=== PATIENT | male | born 1950 | race Caucasian/White ===

== ENCOUNTER 2016-09-11 10:46 | Emergency (ER) | payer OTHER ==
--- NOTE | 2016-09-11 12:32 | DIAGNOSTIC IMAGING REPORT ---
PROCEDURE: XR FINGER - RIGHT INDICATION: TRAUMA/INJURY TECHNIQUE: Three views of the right fifth digit COMPARISON: None. FINDINGS: No fractures or osseous lesions. IMPRESSION: 1. No fracture
--- NOTE | 2016-09-11 13:24 | ED CLINICAL REPORT ---
Clinical Report - Physicians/Mid Levels [facility] [address] [place] [address] 09/11/2016 10:50 [id number] Time Seen: 11:09. Arrived- By private vehicle. Historian- patient and family. HISTORY OF PRESENT ILLNESS Chief Complaint: Injury to the right 5th (little) finger. The injury happened about 1 week ago. The patient sustained a crush injury. Occurred at home. Patient is experiencing mild pain. Patient denies injury to the head or neck. No other injury. REVIEW OF SYSTEMS The patient has had swelling. No tingling, numbness, weakness, foreign body or skin laceration. PAST HISTORY Primary physician (Dr Healy and Dr Thomas) PROBLEMS: Benign Prostatic Hypertrophy. Erectile Dysfunction. Diabetes Mellitus. Peripheral Neuropathy. Atrial Fibrillation. Arrhythmia. Sinusitis. Congestive Heart Failure. Hypertension. Hyperlipidemia. Anxiety Reaction. Cellulitis. Sleep Apnea. Pulmonary Hypertension. COPD - Chronic Obstructive Pulmonary Disease. Herpes Zoster. Hypercholesterolemia. SURGERIES: Cholecystectomy. Lung Transplant. Tor Fundoplasty. SOCIAL HISTORY No alcohol use or drug use. ADDITIONAL NOTES The nursing notes have been reviewed. PHYSICAL EXAM Vital Signs: 09/11/2016 10:56 BP: 159/65. HR: 70. RR: 14. O2 saturation: 96%. Temp: 97.8 F. Appearance: Alert. Oriented X3. Patient in mild distress. Head: Head atraumatic. Eyes: No scleral icterus or pale conjunctivae. CVS: Heart sounds normal. Pulses normal. Respiratory: No respiratory distress. Breath sounds normal. Abdomen: Soft and nontender. Back: No tenderness. Normal inspection. Skin: Skin warm and dry. Skin intact. Extremities: Tip of left little finger: moderate tenderness and mild swelling medium sized subungual hematoma present. No erythema, laceration of tip of left little finger or foreign body. No nail avulsion, exposed bone or loss of the nail bed on the left little finger or tip amputation of the left little finger. No wrist injury. Hand and wrist exam otherwise negative. Extremities otherwise negative. Neuro, Vascular and Tendons: Capillary refill not prolonged. Sensation intact. Motor intact. Tendon function intact. Neuro: Oriented X 3. LABS, X-RAYS, AND EKG Rt UE Digits X-ray: No fracture. Views: AP, lateral and oblique. Technique: good. The X-rays were interpreted contemporaneously by me. PROGRESS AND PROCEDURES Digital Nerve Block - Finger: Digital nerve block performed on the right little finger. Web space approach utilized. Landmarks identified. Skin prepped. Total volume of 4 mL 0.5% Marcaine infiltrated via two punctures using a 27-gauge needle. Patient cooperative during procedure. No complications encountered. Excellent anesthesia achieved. Nail Injury Note: Location- Right little finger. Anesthesia provided by digital block and using 0.5% Marcaine. Prep done with Betadine. Nailbed trephination performed with electrocautery. Wound dressing applied. Tetanus immunization up-to-date. Course of Care: Pt offered and accepted nail trephonation after digital block. Risks and benefits of the procedure were discussed including infection - especially in the setting of immunosuppresive agents. Patient/family counseled. Additional history sought (from spouse late in patient visit). Old ED records reviewed. (PDMP: oxycodone 15mg (#150) given on 09/02/16). Disposition: Discharged. Condition: stable and improved. CLINICAL IMPRESSION Subungual hematoma of the right fifth toe. No damage to the nail or foreign body present. Essential hypertension. INSTRUCTIONS Apply ice. Elevate affected areas above chest level. Warnings: INFECTION: Watch for signs of infection (increasing heat and redness, pus-like drainage, swelling, or increased pain). Return or see your doctor if these signs occur. GENERAL WARNINGS: Return or contact your physician immediately if your condition worsens or changes unexpectedly, if not improving as expected, or if other problems arise. Your Current Medications: CONTINUE TAKING THE FOLLOWING MEDICATIONS: Bactrim Oral : 400/80mg 1 tab at bedtime. Cholecalciferol Oral : Tablet 1000 unit, 1 tablet daily. Clobetasol PRN*. Colace Oral : Capsule 100 mg, 2 capsules daily. Crestor Oral : Tablet 10 mg, daily. Digoxin Oral : Tablet 125 mcg, 1 tablet daily. Gabapentin Oral : 600mg 3x a day. Loratadine Oral : 10 mg daily. Magnesium Hydroxide Oral : 400mg x1 tab daily. metoprolol 100mg 1/2 tab x2 daily*. Mom 30ml prn*. Multi Vitamin/Minerals Oral. Ondansetron HCl Oral : Tablet 8 mg, prn. OxyCODONE HCl Oral : 15mg PRN shingles. PredniSONE Oral : 5 mg daily. Sildenefil 20mg 5 tab in am*. Simethicone Oral : 80mg 1-2 in am and pm. Tacrolimus Oral : Capsule 1 mg, 4 caps 7am and 4 caps 7pm. Testosterone CYP 200mg/ml 1&1/2 ml Q three weeks*. Tums Oral : daily. Tylenol Oral : 325 mg PRN. Victoza 1.7mg daily*. Warfarin Sodium Oral : 2 mg x2 at bedtime. Xanax Oral : 0.25 mg, prn. Follow-up: Follow up with your doctor Niraj in about two days. Follow up with an orthopedic surgeon You may call for a follow up appointment. Screening today revealed the patient's blood pressure to be in the hypertensive range. The patient should follow up with a primary care provider for blood pressure management. (Electronically signed by Cecil Clarke DO 09/11/2016 16:26)
--- NOTE | 2016-09-11 13:24 | ED ORDER SUMMARY ---
..... Patient: DANIELLE RESENDIZ OrderSheet [facility] VisitID: [id number] [address] [place] [address] 66y, M Registration Date/Time: 09/11/2016 ORDER SHEET Weight: 108.8 kg (stated) Allergies: Statins GENERAL ORDERS: Finger Right (small) Urgent (11:18 09/11/2016 Dorys MCKINNEY) ([facility] 11:22 Matt) (11:33 Thang Ga) MEDICATION ORDERS: IV FLUIDS: ORDER SHEET NOTES: [Electronically signed by Cecil Clarke DO (16:26 09/11/2016)] [Electronically signed by Marilyn Vanegas R.N. (16:28 09/11/2016)] [Electronically locked/signed by Marilyn Vanegas R.N. (16:28 09/11/2016)]
--- NOTE | 2016-09-11 13:24 | ED ORDER SUMMARY ---
..... Patient: DANIELLE RESENDIZ OrderSheet [facility] VisitID: [id number] [address] [place] [address] 66y, M Registration Date/Time: 09/11/2016 ORDER SHEET Weight: 108.8 kg (stated) Allergies: Statins GENERAL ORDERS: Finger Right (small) Urgent (11:18 09/11/2016 Dorys MCKINNEY) ([facility] 11:22 Matt) (11:33 Thang Ga) MEDICATION ORDERS: IV FLUIDS: ORDER SHEET NOTES: [Electronically signed by Cecil Clarke DO (16:26 09/11/2016)] [Electronically signed by Marilyn Vanegas R.N. (16:28 09/11/2016)] [Electronically locked/signed by Marilyn Vanegas R.N. (16:28 09/11/2016)]
--- NOTE | 2016-09-11 13:24 | ED NURSING NOTES ---
Clinical Report - Nurses [facility] [address] [place] [address] 09/11/2016 10:50 Patient: DANIELLE RESENDIZ TRIAGE Triage time 10:56. Acuity: LEVEL 4. Chief Complaint: CRUSH INJURY. Alert. No acute distress. SEPSIS SCREEN: Sepsis Screen. Negative (no infection suspected/documented). GIACOMO COMA SCORE: [place] Coma Scale: 15- eyes open spontaneously (4); best verbal response- oriented x 4 (5); best motor response- obeys commands (6). --11:07 Marilyn Vanegas R.N. 10:56 09/11/16. BP: 159/65. HR: 70. RR: 14. O2 saturation: 96%. Temp: 97.8 F. Pain level now 08/31. --11:07 Marilyn Vanegas R.N. Weight: 108.8 kg stated. Height/Length: 66 inches Per Patient. BMI: 38.7. --10:57 Marilyn Vanegas R.N. Medications Tylenol Oral 325 mg, PRN. --11:11 Marilyn Vanegas R.N. Xanax Oral 0.25 mg, as needed. --11:12 Marilyn Vanegas R.N. Tums Oral daily. --11:12 Marilyn Vanegas R.N. Cholecalciferol Oral (Tablet 1000 unit) 1 tablet, daily. --11:12 Marilyn Vnaegas R.N. Clobetasol PRN. --11:12 Marilyn Vanegas R.N. Crestor Oral (Tablet 10 mg), daily. --11:13 Marilyn Vanegas R.N. Digoxin Oral (Tablet 125 mcg) 1 tablet, daily. --11:13 Marilyn Vanegas R.N. Colace Oral (Capsule 100 mg) 2 capsules, daily. --11:13 Marilyn Vanegas R.N. Gabapentin Oral 600mg , 3x a day. --11:14 Marilyn Vanegas R.N. Loratadine Oral 10 mg, daily. --11:14 Marilyn Vanegas R.N. Mom 30ml prn. --11:15 Marilyn Vanegas R.N. Magnesium Hydroxide Oral 400mg x1 tab daily. --11:15 Marilyn Vanegas R.N. metoprolol 100mg 1/2 tab x2 daily. --11:16 Marilyn Vanegas R.N. Multi Vitamin/Minerals Oral. --11:16 Marilyn Vanegas R.N. Ondansetron HCl Oral (Tablet 8 mg), as needed. --11:16 Marilyn Vanegas R.N. OxyCODONE HCl Oral 15mg PRN shingles. --11:17 Marilyn Vanegas R.N. PredniSONE Oral 5 mg, daily. --11:17 Marilyn Vanegas R.N. Sildenefil 20mg 5 tab in am. --11:18 Marilyn Vanegas R.N. Simethicone Oral 80mg 1-2 in am and pm. --11:18 Marilyn Vanegas R.N. Tacrolimus Oral (Capsule 1 mg) 4 caps 7am and 4 caps 7pm. --11:19 Marilyn Vanegas R.N. Testosterone CYP 200mg/ml 1&1/2 ml Q three weeks. --11:20 Marilyn Vanegas R.N. Bactrim Oral 400/80mg 1 tab at bedtime. --11:20 Marilyn Vanegas R.N. Victoza 1.7mg daily. --11:20 Marilyn Vanegas R.N. Warfarin Sodium Oral 2 mg, x2 at bedtime. --11:21 Marilyn Vanegas R.N. Allergies Statins. (feet swelling) --11:01 Marilyn Vanegas R.N. History Arrived by private vehicle. Historian: patient. Unaccompanied. Primary physician (Dr Healy and Dr Thomas). Location of injuries: right thumb and tip of right thumb. This occurred (1 week ago). 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 PAST MEDICAL HX: Tetanus status: up-to-date. Immunizations: up-to-date. SOCIAL HX: Smoker- current status unknown. No alcohol use or drug use. No infectious disease exposure. ABUSE ASSESSMENT: Abuse assessment: The patient was asked "Do you feel safe in your home?" and "Has anyone hurt you or threatened to hurt you?". No report of abuse. NUTRITIONAL RISK ASSESSMENT: The nutritional risk assessment revealed no deficiencies. FUNCTIONAL ASSESSMENT: Functional assessment: no impairments noted. LEARNING NEEDS ASSESSMENT: The learning needs assessment revealed no barriers. --11:07 Marilyn Vanegas R.N. ( correction to prior charting. Location of injury: tip of right little finger). --11:09 Marilyn Vanegas R.N. SOCIAL HX: Former smoker, end date 2002. --11:30 Marilyn Vanegas R.N. PROBLEMS: Benign Prostatic Hypertrophy. Erectile Dysfunction. Diabetes Mellitus. Peripheral Neuropathy. Atrial Fibrillation. Arrhythmia. Sinusitis. Congestive Heart Failure. Hypertension. Hyperlipidemia. Anxiety Reaction. Cellulitis. Sleep Apnea. Pulmonary Hypertension. COPD - Chronic Obstructive Pulmonary Disease. Herpes Zoster. Hypercholesterolemia. --11:06 Marilyn Vanegas R.N. ADDITIONAL SURGERIES: Cholecystectomy. Lung Transplant. --11:06 Marilyn Vanegas R.N. Tor Fundoplasty. --11:06 Marilyn Vanegas R.N. Interventions ID band on patient. Ambulatory. --11:07 Marilyn Vanegas R.N. PHYSICAL ASSESSMENT Ambulatory to room. GENERAL / NEURO / PSYCH: Alert. Appears in no acute distress. RESPIRATORY: Respirations not labored. CVS: Capillary refill less than 2 seconds. EXTREMITIES: Tip of right little finger: small subungual hematoma present. SKIN: Skin intact. Skin is warm and dry. --11:07 Marilyn Vanegas R.N. NURSING PROGRESS NOTES Two patient identifiers checked. Call light placed in reach. Side rails up x 2. Bed placed in lowest position. Brakes of bed on. Patient ready for evaluation- chart flagged. --11:07 Marilyn Vanegas R.N. ( portable xray done at the bedside.). --11:31 Marilyn Vanegas R.N. Patient informed about reason for wait. --12:28 Marilyn Vanegas R.N. 12:27 09/11/16. BP: 137/75. HR: 67. RR: 15. O2 saturation: 95%. --12:28 Marilyn Vanegas R.N. DISPOSITION / DISCHARGE 13:30. Departure time: 1330. Condition at departure: stable. No learning barriers present. Discharge instructions provided and reviewed with the patient. Reviewed referral to family practice for followup. Patient verbalized understanding. Written instructions provided in Chilean. The patient was discharged home and accompanied by office associate. He left the Emergency Department ambulatory and via private vehicle. Slip Injector And Applicator driving. Medication list reviewed and validated. --16:27 Marilyn Vanegas R.N. 13:30 09/11/16. RR: 15. --16:27 Marilyn Vanegas R.N. Locked/Released at 09/11/2016 16:28 by Marilyn Vanegas R.N.
--- NOTE | 2016-09-11 13:24 | ED NURSING NOTES ---
Clinical Report - Nurses [facility] [address] [place] [address] 09/11/2016 10:50 Patient: DANIELLE RESENDIZ TRIAGE Triage time 10:56. Acuity: LEVEL 4. Chief Complaint: CRUSH INJURY. Alert. No acute distress. SEPSIS SCREEN: Sepsis Screen. Negative (no infection suspected/documented). GIACOMO COMA SCORE: [place] Coma Scale: 15- eyes open spontaneously (4); best verbal response- oriented x 4 (5); best motor response- obeys commands (6). --11:07 Marilyn Vanegas R.N. 10:56 09/11/16. BP: 159/65. HR: 70. RR: 14. O2 saturation: 96%. Temp: 97.8 F. Pain level now 08/31. --11:07 Marilyn Vanegas R.N. Weight: 108.8 kg stated. Height/Length: 66 inches Per Patient. BMI: 38.7. --10:57 Marilyn Vanegas R.N. Medications Tylenol Oral 325 mg, PRN. --11:11 Marilyn Vanegas R.N. Xanax Oral 0.25 mg, as needed. --11:12 Marilyn Vanegas R.N. Tums Oral daily. --11:12 Marilyn Vanegas R.N. Cholecalciferol Oral (Tablet 1000 unit) 1 tablet, daily. --11:12 Marilyn Vanegas R.N. Clobetasol PRN. --11:12 Marilyn Vanegas R.N. Crestor Oral (Tablet 10 mg), daily. --11:13 Marilyn Vanegas R.N. Digoxin Oral (Tablet 125 mcg) 1 tablet, daily. --11:13 Marilyn Vanegas R.N. Colace Oral (Capsule 100 mg) 2 capsules, daily. --11:13 Marilyn Vanegas R.N. Gabapentin Oral 600mg , 3x a day. --11:14 Marilyn Vanegas R.N. Loratadine Oral 10 mg, daily. --11:14 Marilyn Vanegas R.N. Mom 30ml prn. --11:15 Marilyn Vanegas R.N. Magnesium Hydroxide Oral 400mg x1 tab daily. --11:15 Marilyn Vanegas R.N. metoprolol 100mg 1/2 tab x2 daily. --11:16 Marilyn Vanegas R.N. Multi Vitamin/Minerals Oral. --11:16 Marilyn Vanegas R.N. Ondansetron HCl Oral (Tablet 8 mg), as needed. --11:16 Marilyn Vanegas R.N. OxyCODONE HCl Oral 15mg PRN shingles. --11:17 Marilyn Vanegas R.N. PredniSONE Oral 5 mg, daily. --11:17 Marilyn Vanegas R.N. Sildenefil 20mg 5 tab in am. --11:18 Marilyn Vanegas R.N. Simethicone Oral 80mg 1-2 in am and pm. --11:18 Marilyn Vanegas R.N. Tacrolimus Oral (Capsule 1 mg) 4 caps 7am and 4 caps 7pm. --11:19 Marilyn Vanegas R.N. Testosterone CYP 200mg/ml 1&1/2 ml Q three weeks. --11:20 Marilyn Vanegas R.N. Bactrim Oral 400/80mg 1 tab at bedtime. --11:20 Marilyn Vanegas R.N. Victoza 1.7mg daily. --11:20 Marilyn Vanegas R.N. Warfarin Sodium Oral 2 mg, x2 at bedtime. --11:21 Marilyn Vanegas R.N. Allergies Statins. (feet swelling) --11:01 Marilyn Vanegas R.N. History Arrived by private vehicle. Historian: patient. Unaccompanied. Primary physician (Dr Healy and Dr Thomas). Location of injuries: right thumb and tip of right thumb. This occurred (1 week ago). 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 PAST MEDICAL HX: Tetanus status: up-to-date. Immunizations: up-to-date. SOCIAL HX: Smoker- current status unknown. No alcohol use or drug use. No infectious disease exposure. ABUSE ASSESSMENT: Abuse assessment: The patient was asked "Do you feel safe in your home?" and "Has anyone hurt you or threatened to hurt you?". No report of abuse. NUTRITIONAL RISK ASSESSMENT: The nutritional risk assessment revealed no deficiencies. FUNCTIONAL ASSESSMENT: Functional assessment: no impairments noted. LEARNING NEEDS ASSESSMENT: The learning needs assessment revealed no barriers. --11:07 Marilyn Vanegas R.N. ( correction to prior charting. Location of injury: tip of right little finger). --11:09 Marilyn Vangeas R.N. SOCIAL HX: Former smoker, end date 2002. --11:30 Marilyn Vanegas R.N. PROBLEMS: Benign Prostatic Hypertrophy. Erectile Dysfunction. Diabetes Mellitus. Peripheral Neuropathy. Atrial Fibrillation. Arrhythmia. Sinusitis. Congestive Heart Failure. Hypertension. Hyperlipidemia. Anxiety Reaction. Cellulitis. Sleep Apnea. Pulmonary Hypertension. COPD - Chronic Obstructive Pulmonary Disease. Herpes Zoster. Hypercholesterolemia. --11:06 Marilyn Vanegas R.N. ADDITIONAL SURGERIES: Cholecystectomy. Lung Transplant. --11:06 Marilyn Vanegas R.N. Tor Fundoplasty. --11:06 Marilyn Vanegas R.N. Interventions ID band on patient. Ambulatory. --11:07 Marilyn Vanegas R.N. PHYSICAL ASSESSMENT Ambulatory to room. GENERAL / NEURO / PSYCH: Alert. Appears in no acute distress. RESPIRATORY: Respirations not labored. CVS: Capillary refill less than 2 seconds. EXTREMITIES: Tip of right little finger: small subungual hematoma present. SKIN: Skin intact. Skin is warm and dry. --11:07 Marilyn Vanegas R.N. NURSING PROGRESS NOTES Two patient identifiers checked. Call light placed in reach. Side rails up x 2. Bed placed in lowest position. Brakes of bed on. Patient ready for evaluation- chart flagged. --11:07 Marilyn Vanegas R.N. ( portable xray done at the bedside.). --11:31 Marilyn Vanegas R.N. Patient informed about reason for wait. --12:28 Marilyn Vanegas R.N. 12:27 09/11/16. BP: 137/75. HR: 67. RR: 15. O2 saturation: 95%. --12:28 Marilyn Vanegas R.N. DISPOSITION / DISCHARGE 13:30. Departure time: 1330. Condition at departure: stable. No learning barriers present. Discharge instructions provided and reviewed with the patient. Reviewed referral to family practice for followup. Patient verbalized understanding. Written instructions provided in Cuban. The patient was discharged home and accompanied by photograph inspector. He left the Emergency Department ambulatory and via private vehicle. Access Consultant driving. Medication list reviewed and validated. --16:27 Marilyn Vanegas R.N. 13:30 09/11/16. RR: 15. --16:27 Marilyn Vanegas R.N. Locked/Released at 09/11/2016 16:28 by Marilyn Vanegas R.N.
--- NOTE | 2016-09-11 16:28 | ED MAR SUMMARY ---
..... Medication Administration Record [facility] [address] [place], [place] [id number] Patient: DANIELLE RESENDIZ Visit ID: [id number] 66y, M Weight: 108.8 kg Height/Length: 66 in BMI: 38.7 ALLERGIES: Statins
--- NOTE | 2016-09-11 16:28 | ED MED RECONCILIATION SUMMARY ---
Patient: DANIELLE RESENDIZ Medication Reconciliation Report [facility] VisitID: [id number] [place] [address] 66y, M Registration Date/Time: 09/11/2016 Weight: 108.8 kg Height/Length: 66 in. BMI: 38.7 ALLERGIES: Statins The patient's Home Medications are listed below: CONTINUE TAKING THE FOLLOWING MEDICATIONS: Bactrim Oral 400/80mg 1 tab at bedtime Cholecalciferol Oral (1000 unit) 1 tablet, daily Clobetasol PRN Colace Oral (100 mg) 2 capsules, daily Crestor Oral (10 mg), daily Digoxin Oral (125 mcg) 1 tablet, daily Gabapentin Oral 600mg , 3x a day Loratadine Oral 10 mg, daily Magnesium Hydroxide Oral 400mg x1 tab daily metoprolol 100mg 1/2 tab x2 daily Mom 30ml prn Multi Vitamin/Minerals Oral Ondansetron HCl Oral (8 mg) OxyCODONE HCl Oral 15mg PRN shingles PredniSONE Oral 5 mg, daily Sildenefil 20mg 5 tab in am Simethicone Oral 80mg 1-2 in am and pm Tacrolimus Oral (1 mg) 4 caps 7am and 4 caps 7pm Testosterone CYP 200mg/ml 1&1/2 ml Q three weeks Tums Oral daily Tylenol Oral 325 mg, PRN Victoza 1.7mg daily Warfarin Sodium Oral 2 mg, x2 at bedtime Xanax Oral 0.25 mg The source(s) of the original Home Medication information: Not obtained. The following Medications were given to the patient in the Emergency Department: None. The following Medications were prescribed to the patient: None.
--- NOTE | 2016-09-11 16:28 | ED MED RECONCILIATION SUMMARY ---
Patient: DANIELLE RESENDIZ Medication Reconciliation Report [facility] VisitID: [id number] [place] [address] 66y, M Registration Date/Time: 09/11/2016 Weight: 108.8 kg Height/Length: 66 in. BMI: 38.7 ALLERGIES: Statins The patient's Home Medications are listed below: CONTINUE TAKING THE FOLLOWING MEDICATIONS: Bactrim Oral 400/80mg 1 tab at bedtime Cholecalciferol Oral (1000 unit) 1 tablet, daily Clobetasol PRN Colace Oral (100 mg) 2 capsules, daily Crestor Oral (10 mg), daily Digoxin Oral (125 mcg) 1 tablet, daily Gabapentin Oral 600mg , 3x a day Loratadine Oral 10 mg, daily Magnesium Hydroxide Oral 400mg x1 tab daily metoprolol 100mg 1/2 tab x2 daily Mom 30ml prn Multi Vitamin/Minerals Oral Ondansetron HCl Oral (8 mg) OxyCODONE HCl Oral 15mg PRN shingles PredniSONE Oral 5 mg, daily Sildenefil 20mg 5 tab in am Simethicone Oral 80mg 1-2 in am and pm Tacrolimus Oral (1 mg) 4 caps 7am and 4 caps 7pm Testosterone CYP 200mg/ml 1&1/2 ml Q three weeks Tums Oral daily Tylenol Oral 325 mg, PRN Victoza 1.7mg daily Warfarin Sodium Oral 2 mg, x2 at bedtime Xanax Oral 0.25 mg The source(s) of the original Home Medication information: Not obtained. The following Medications were given to the patient in the Emergency Department: None. The following Medications were prescribed to the patient: None.
--- NOTE | 2016-09-11 16:28 | ED MAR SUMMARY ---
..... Medication Administration Record [facility] [address] [place], [place] [id number] Patient: DANIELLE RESENDIZ Visit ID: [id number] 66y, M Weight: 108.8 kg Height/Length: 66 in BMI: 38.7 ALLERGIES: Statins
--- NOTE | 2016-09-11 16:28 | ED DISCHARGE INSTRUCTIONS ---
Patient: DANIELLE RESENDIZ General Instructions [facility] VisitID: [id number] [place] [address] 66y, M Registration Date/Time: 09/11/2016 Subungual hematoma of the right fifth toe. No damage to the nail or foreign body present. Essential hypertension. INSTRUCTIONS Apply ice. Elevate affected areas above chest level. Warnings: INFECTION: Watch for signs of infection (increasing heat and redness, pus-like drainage, swelling, or increased pain). Return or see your doctor if these signs occur. GENERAL WARNINGS: Return or contact your physician immediately if your condition worsens or changes unexpectedly, if not improving as expected, or if other problems arise. Your Current Medications: CONTINUE TAKING THE FOLLOWING MEDICATIONS: Bactrim Oral : 400/80mg 1 tab at bedtime. Cholecalciferol Oral : Tablet 1000 unit, 1 tablet daily. Clobetasol PRN*. Colace Oral : Capsule 100 mg, 2 capsules daily. Crestor Oral : Tablet 10 mg, daily. Digoxin Oral : Tablet 125 mcg, 1 tablet daily. Gabapentin Oral : 600mg 3x a day. Loratadine Oral : 10 mg daily. Magnesium Hydroxide Oral : 400mg x1 tab daily. metoprolol 100mg 1/2 tab x2 daily*. Mom 30ml prn*. Multi Vitamin/Minerals Oral. Ondansetron HCl Oral : Tablet 8 mg, prn. OxyCODONE HCl Oral : 15mg PRN shingles. PredniSONE Oral : 5 mg daily. Sildenefil 20mg 5 tab in am*. Simethicone Oral : 80mg 1-2 in am and pm. Tacrolimus Oral : Capsule 1 mg, 4 caps 7am and 4 caps 7pm. Testosterone CYP 200mg/ml 1&1/2 ml Q three weeks*. Tums Oral : daily. Tylenol Oral : 325 mg PRN. Victoza 1.7mg daily*. Warfarin Sodium Oral : 2 mg x2 at bedtime. Xanax Oral : 0.25 mg, prn. Follow-up: Follow up with your doctor Niraj in about two days. Follow up with an orthopedic surgeon You may call for a follow up appointment. Screening today revealed the patient's blood pressure to be in the hypertensive range. The patient should follow up with a primary care provider for blood pressure management. ADDITIONAL INFORMATION Subungual Hematoma A subungual hematoma is blood under the nail. It occurs when the finger or toe has been hit or crushed. It causes the nail to look blue. Sometimes, the bone under the nail is also fractured and this will take longer to heal. If the bruise is small and not too painful, it will heal without treatment. If the bruise is large and painful, the blood may need to be drained. If a large area of the nail is damaged, it may be removed by your doctor. If the nail was not removed, it may separate and fall off in the next two weeks. In almost all cases, the nail will grow back from under the cuticle. This takes a few weeks to start and is complete in about 4-6 months for a fingernail and 12 months for a toenail. If the nail bed was damaged, the nail may grow back with a rough or irregular shape. Sometimes the nail may not regrow at all. Home Care: Apply an ice pack (ice cubes in a plastic bag, wrapped in a thin towel) and apply for 20 minutes every 1-2 hours the first day. Continue this 3-4 times a day until the pain and swelling goes away. If the nail was drained: Keep the nail covered with a clean Band-Aid for the next two days. There may be some oozing of blood during that time, so change the Band-Aid as needed. Soak the finger or toe once a day under warm running water. Clean any crust away with a cotton tipped applicator (Q-tip) soaked in soapy water. If the nail was removed: The nail bed (tissue under the nail) is moist, soft and sensitive. This needs to be protected from injury for the first 7-10 days until it dries out and becomes hard. Keep it covered with a dressing or Band-Aid until that time. Bandages tend to stick to a newly exposed nail bed and be hard to remove if left in place more than 24 hours. Therefore, unless you were told otherwise, change dressings every 24 hours. If necessary, soak the dressing off while holding your finger or toe under warm running water. If an x-ray showed a fracture, you should protect the finger or toe for 3-4 weeks while it is healing. If you were prescribed antibiotics to prevent infection, take them as directed until they are all gone. You may use acetaminophen (Tylenol) or ibuprofen (Motrin, Advil) to control pain, unless another medicine was prescribed. [NOTE: If you have chronic liver or kidney disease or ever had a stomach ulcer or GI bleeding, talk with your doctor before using these medicines.] Do not use ibuprofen in children under six months of age. Follow Up With Your Doctor Or This Facility As Advised. If The Nail Was Drained, There Is A Small Risk Of Infection. Watch Carefully For The Signs Listed Below. Get Prompt Medical Attention If Any Of The Following Occur: Increasing redness around the nail Increasing local pain or swelling Pus draining from the nail Fever of 100.4F (38C) or higher, or as directed by your healthcare provider High Blood Pressure --Established High Blood Pressure (Hypertension) is a chronic disease. The cause is unknown in most cases. It can usually be controlled with lifestyle changes and/or medicines. Symptoms of high blood pressure may include headache, dizziness, visual changes, chest pain and shortness of breath. Sometimes it causes no symptoms at all. However, even if there are no symptoms, untreated high blood pressure increases the risk of heart attack, also known as acute myocardial infarction, or AMI, and stroke. It is a serious health risk and should not be ignored. A normal blood pressure is 120/80 or less. The first (top) number is the "systolic" pressure. The second (bottom) number is the "diastolic" pressure. Hypertension exists when either the top number is 140 or higher, OR the bottom number is 90 or higher on repeated measurements. Home Care: All patients with high blood pressure should do the following to lower their pressure. If you are on medicines, then these methods may reduce or eliminate your need for medicines in the future. Begin a weight loss program if you are overweight. Reduce your salt intake. Avoid high salt foods (olives, pickles, smoked meats, salted potato chips, etc.). Do not add salt to your food at the table. Use only small amounts of salt when cooking. Begin an exercise program. Discuss with your doctor what type of exercise program would be best for you. It doesn't have to be difficult. Even brisk walking for 20 minutes three times a week is a good form of exercise. Avoid medicines which contain heart stimulants. This includes many cold and sinus decongestant pills and sprays as well as diet pills. Check the warnings about hypertension on the label. Stimulants such as amphetamine or cocaine could be lethal for someone with hypertension. Never take these. Limit your caffeine intake or switch to caffeine-free products. Stop smoking. If you are a long-time smoker, this can be hard. Enroll in a stop-smoking program to improve your chance of success. Learning how to handle stress better is an important part of any program to lower blood pressure. Learn about relaxation methods such as meditation, yoga or biofeedback. If medicines were prescribed, take them exactly as directed. Missing doses may cause your blood pressure get out of control. Consider buying an automatic blood pressure machine (available at most pharmacies). Use this to monitor your blood pressure at home and report the results to your doctor. Follow Up: Regular visits to your own physician for blood pressure checks and medicine adjustment is an important part of your care. Make a follow-up appointment as directed by our staff. Get Prompt Medical Attention if any of the following occur: Chest pain or shortness of breath Severe headache Throbbing or rushing sound in the ears Nosebleed Sudden severe abdominal pain Extreme drowsiness, confusion or fainting Dizziness or vertigo (dizziness with spinning sensation) Weakness of an arm or leg or one side of the face Difficulty with speech or vision You have been given the following additional information: Subungual Hematoma Hypertension, Established (Electronically signed by Cecil Clarke DO 09/11/2016 16:26)
== END 2016-09-11 13:30 | disposition home or self-care (01) ==
LOC: ED SRH 10:46
DX: S60.051A Contusion of right little finger without damage to nail, initial encounter (principal); W23.0XXA Caught, crushed, jammed, or pinched between moving objects, initial encounter; Y92.009 Unspecified place in unspecified non-institutional (private) residence as the place of occurrence of the external cause; I11.0 Hypertensive heart disease with heart failure; Z79.01 Long term (current) use of anticoagulants; E11.40 Type 2 diabetes mellitus with diabetic neuropathy, unspecified; I50.9 Heart failure, unspecified; E78.5 Hyperlipidemia, unspecified

== ENCOUNTER 2016-09-30 18:23 | Emergency (ER) | payer OTHER ==
--- NOTE | 2016-09-30 19:35 | ED NURSING NOTES ---
Clinical Report - Nurses [facility] [address] [place] [address] 09/30/2016 18:24 Patient: DANIELLE RESENDIZ TRIAGE Triage time 18:35 Sep 30 2016. Acuity: LEVEL 3. Chief Complaint: (laceration). Alert. No acute distress. GIACOMO COMA SCORE: [place] Coma Scale: 15- eyes open spontaneously (4); best verbal response- oriented x 4 (5); best motor response- obeys commands (6). --18:41 Kelly Irving R.N. 18:35 09/30/16. BP: 158/52. HR: 60. RR: 20. O2 saturation: 95%. Temp: 98.1 F. Pain level now: 08/03. --18:41 Kelly Irving R.N. Weight: 108.8 kg stated. Height/Length: 67 inches Per Patient. BMI: 37.6. --18:40 Kelly Irving R.N. Medication/allergy information source: the patient's imported external medical record. --18:41 Kelly Irving R.N. History Arrived by private vehicle. Historian: patient. Accompanied by family. Onset. (about 1 hours). No cough or difficulty breathing. 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 PAST MEDICAL HX: Immunizations: up-to-date. SOCIAL HX: Former smoker, end date 2002. Occasional alcohol use. No drug use. No infectious disease exposure. SELF HARM ASSESSMENT: A self harm assessment was performed. The patient answered "no" to the question "Do you have thoughts of harming or killing yourself?". FALL RISK ASSESSMENT: Fall risk assessment completed. No fall risk identified. NUTRITIONAL RISK ASSESSMENT: The nutritional risk assessment revealed no deficiencies. FUNCTIONAL ASSESSMENT: Functional assessment: no impairments noted. LEARNING NEEDS ASSESSMENT: The learning needs assessment revealed no barriers. ABUSE ASSESSMENT: Abuse assessment: The patient was asked "Do you feel safe in your home?" and "Has anyone hurt you or threatened to hurt you?". SKIN INTEGRITY ASSESSMENT: Skin integrity risk assessment completed. No skin integrity risk identified. --18:41 Kelly Irving R.N. PROBLEMS: Subungual Hematoma. Benign Prostatic Hypertrophy. Erectile Dysfunction. Diabetes Mellitus. Peripheral Neuropathy. Atrial Fibrillation. Arrhythmia. Sinusitis. Congestive Heart Failure. Hypertension. Hyperlipidemia. Anxiety Reaction. Cellulitis. Sleep Apnea. Pulmonary Hypertension. Hypercholesterolemia. COPD - Chronic Obstructive Pulmonary Disease. Herpes Zoster. --18:38 Kelly Irving R.N. ADDITIONAL SURGERIES: Cholecystectomy. Lung Transplant. Tor Fundoplasty. --18:38 Kelly Irving R.N. Interventions ID band on patient. To room. --18:41 Kelly Irving R.N. PHYSICAL ASSESSMENT Ambulatory to room. GENERAL / NEURO / PSYCH: Alert. Oriented X 4. Appears in no acute distress. HEENT: Mucous membranes are pink. RESPIRATORY: Respirations not labored. CVS: Capillary refill less than 2 seconds. GI / : Abdomen soft and nontender. SKIN: Skin is warm and dry. --18:41 Kelly Irving R.N. NURSING PROGRESS NOTES Pulse oximeter and NIBP monitor placed on patient; monitor alarms on. Head of bed elevated. Patient identifiers checked. Call light placed in reach. Side rails up. Bed placed in lowest position. Brakes of bed on. --18:42 Kelly Irving R.N. Patient transported. (18:56 Sep 30 2016). --18:58 Kelly Irving R.N. Patient transported to [place] by stretcher with tech. (18:56 Sep 30 2016). --18:59 Kelly Irving R.N. 19:28 Scalp wound irrigated with normal saline. --19:28 McQuoid, Kimber, ER Tech1. DISPOSITION / DISCHARGE Departure time: 19:40 Sep 30 2016. Condition at departure: improved. The following issues were addressed: pain control and comfort issues. No learning barriers present. Discharge instructions provided and reviewed with the patient. Reviewed wound care instructions. Reviewed referral to a primary care physician. Patient verbalized understanding. Written instructions provided in Thai. The patient was discharged home and accompanied by spouse. He left the Emergency Department ambulatory and via private vehicle. Spouse driving. FALL RISK ASSESSMENT: Fall risk assessment completed. No fall risk identified. --19:40 Kelly Irving R.N. 19:38 09/30/16. BP: 140/51 (large adult cuff) taken on the left arm, via an automated monitor, while lying. HR: 58. RR: 16. O2 saturation: 99%. Pain level now: 0/10. --19:40 Kelly Irving R.N. Locked/Released at 09/30/2016 19:46 by Kelly Irving R.N.
--- NOTE | 2016-09-30 19:35 | ED ORDER SUMMARY ---
..... Patient: DANIELLE RESENDIZ OrderSheet [facility] VisitID: [id number] [place] [address] 66y, M Registration Date/Time: 09/30/2016 ORDER SHEET Weight: 108.8 kg (stated) Allergies: Statins GENERAL ORDERS: CT Head wo Cont Urgent (18:38 09/30/2016 EKoroleva P.A.-C) (Ack 18:41 TBergley) (18:59 KKnebel R.N.) PT with INR Urgent (18:38 09/30/2016 EKoroleva P.A.-C) (Ack 18:41 TBergley) (18:59 KKnebel R.N.) PTT Urgent (18:38 09/30/2016 EKoroleva P.A.-C) (Ack 18:41 TBergley) (18:59 KKnebel R.N.) MEDICATION ORDERS: IV FLUIDS: ORDER SHEET NOTES: [Electronically signed by Kelly Irving R.N. (19:46 09/30/2016)] [Electronically signed by Snow Haji P.A.-C (20:05 09/30/2016)] [Electronically locked/signed by Kelly Irving R.N. (19:46 09/30/2016)]
--- NOTE | 2016-09-30 19:35 | ED ORDER SUMMARY ---
..... Patient: DANIELLE RESENDIZ OrderSheet [facility] VisitID: [id number] [place] [address] 66y, M Registration Date/Time: 09/30/2016 ORDER SHEET Weight: 108.8 kg (stated) Allergies: Statins GENERAL ORDERS: CT Head wo Cont Urgent (18:38 09/30/2016 EKoroleva P.A.-C) (Ack 18:41 TBergley) (18:59 KKnebel R.N.) PT with INR Urgent (18:38 09/30/2016 EKoroleva P.A.-C) (Ack 18:41 TBergley) (18:59 KKnebel R.N.) PTT Urgent (18:38 09/30/2016 EKoroleva P.A.-C) (Ack 18:41 TBergley) (18:59 KKnebel R.N.) MEDICATION ORDERS: IV FLUIDS: ORDER SHEET NOTES: [Electronically signed by Kelly Irving R.N. (19:46 09/30/2016)] [Electronically signed by Snow Haji P.A.-C (20:05 09/30/2016)] [Electronically locked/signed by Kelly Irving R.N. (19:46 09/30/2016)]
--- NOTE | 2016-09-30 19:35 | ED NURSING NOTES ---
Clinical Report - Nurses [facility] [address] [place] [address] 09/30/2016 18:24 Patient: DANIELLE RESENDIZ TRIAGE Triage time 18:35 Sep 30 2016. Acuity: LEVEL 3. Chief Complaint: (laceration). Alert. No acute distress. GIACOMO COMA SCORE: [place] Coma Scale: 15- eyes open spontaneously (4); best verbal response- oriented x 4 (5); best motor response- obeys commands (6). --18:41 Kelly Irving R.N. 18:35 09/30/16. BP: 158/52. HR: 60. RR: 20. O2 saturation: 95%. Temp: 98.1 F. Pain level now: 08/03. --18:41 Kelly Irving R.N. Weight: 108.8 kg stated. Height/Length: 67 inches Per Patient. BMI: 37.6. --18:40 Kelly Irving R.N. Medication/allergy information source: the patient's imported external medical record. --18:41 Kelly Irving R.N. History Arrived by private vehicle. Historian: patient. Accompanied by family. Onset. (about 1 hours). No cough or difficulty breathing. Treatment TRADE MARK EXAMINER: None. PAST MEDICAL HX: Immunizations: up-to-date. SOCIAL HX: Former smoker, end date 2002. Occasional alcohol use. No drug use. No infectious disease exposure. SELF HARM ASSESSMENT: A self harm assessment was performed. The patient answered "no" to the question "Do you have thoughts of harming or killing yourself?". FALL RISK ASSESSMENT: Fall risk assessment completed. No fall risk identified. NUTRITIONAL RISK ASSESSMENT: The nutritional risk assessment revealed no deficiencies. FUNCTIONAL ASSESSMENT: Functional assessment: no impairments noted. LEARNING NEEDS ASSESSMENT: The learning needs assessment revealed no barriers. ABUSE ASSESSMENT: Abuse assessment: The patient was asked "Do you feel safe in your home?" and "Has anyone hurt you or threatened to hurt you?". SKIN INTEGRITY ASSESSMENT: Skin integrity risk assessment completed. No skin integrity risk identified. --18:41 Kelly Irving R.N. PROBLEMS: Subungual Hematoma. Benign Prostatic Hypertrophy. Erectile Dysfunction. Diabetes Mellitus. Peripheral Neuropathy. Atrial Fibrillation. Arrhythmia. Sinusitis. Congestive Heart Failure. Hypertension. Hyperlipidemia. Anxiety Reaction. Cellulitis. Sleep Apnea. Pulmonary Hypertension. Hypercholesterolemia. COPD - Chronic Obstructive Pulmonary Disease. Herpes Zoster. --18:38 Kelly Irving R.N. ADDITIONAL SURGERIES: Cholecystectomy. Lung Transplant. Tor Fundoplasty. --18:38 Kelly Irving R.N. Interventions ID band on patient. To room. --18:41 Kelly Irving R.N. PHYSICAL ASSESSMENT Ambulatory to room. GENERAL / NEURO / PSYCH: Alert. Oriented X 4. Appears in no acute distress. HEENT: Mucous membranes are pink. RESPIRATORY: Respirations not labored. CVS: Capillary refill less than 2 seconds. GI / : Abdomen soft and nontender. SKIN: Skin is warm and dry. --18:41 Kelly Irving R.N. NURSING PROGRESS NOTES Pulse oximeter and NIBP monitor placed on patient; monitor alarms on. Head of bed elevated. Patient identifiers checked. Call light placed in reach. Side rails up. Bed placed in lowest position. Brakes of bed on. --18:42 Kelly Irving R.N. Patient transported. (18:56 Sep 30 2016). --18:58 Kelly Irving R.N. Patient transported to [place] by stretcher with tech. (18:56 Sep 30 2016). --18:59 Kelly Irving R.N. 19:28 Scalp wound irrigated with normal saline. --19:28 McQuoid, Kimber, ER Tech1. DISPOSITION / DISCHARGE Departure time: 19:40 Sep 30 2016. Condition at departure: improved. The following issues were addressed: pain control and comfort issues. No learning barriers present. Discharge instructions provided and reviewed with the patient. Reviewed wound care instructions. Reviewed referral to a primary care physician. Patient verbalized understanding. Written instructions provided in Italian. The patient was discharged home and accompanied by spouse. He left the Emergency Department ambulatory and via private vehicle. Spouse driving. FALL RISK ASSESSMENT: Fall risk assessment completed. No fall risk identified. --19:40 Kelly Irving R.N. 19:38 09/30/16. BP: 140/51 (large adult cuff) taken on the left arm, via an automated monitor, while lying. HR: 58. RR: 16. O2 saturation: 99%. Pain level now: 0/10. --19:40 Kelly Irving R.N. Locked/Released at 09/30/2016 19:46 by Kelly Irving R.N.
--- NOTE | 2016-09-30 19:35 | ED CLINICAL REPORT ---
Clinical Report - Physicians/Mid Levels [facility] [address] [place] [address] 09/30/2016 18:24 [id number] Time Seen: 18:47 Sep 30 2016. Arrived- By private vehicle. Historian- patient. HISTORY OF PRESENT ILLNESS Location of injuries- (metal fell on head). Chief Complaint: INJURY TO HEAD. The injury occurred just prior to arrival. Occurred at home. The patient sustained a blow and laceration. The patient complains of mild pain. The patient sustained a blow to the head. No loss of consciousness. (Sustain a blow from a metal object prior to arrival. No LOC. Patient on warfarin. Reports mild headache. Denies any vision changes. Has been behaving his normal self per .). REVIEW OF SYSTEMS No nausea or laceration. All systems otherwise negative, except as recorded above. PAST HISTORY Tetanus immunization status is up-to-date. Problems: Subungual Hematoma. Benign Prostatic Hypertrophy. Erectile Dysfunction. Diabetes Mellitus. Peripheral Neuropathy. Atrial Fibrillation. Arrhythmia. Sinusitis. Congestive Heart Failure. Hypertension. Hyperlipidemia. Anxiety Reaction. Cellulitis. Sleep Apnea. Pulmonary Hypertension. Hypercholesterolemia. COPD - Chronic Obstructive Pulmonary Disease. Herpes Zoster. Additional Surgeries: Cholecystectomy. Lung Transplant. Tor Fundoplasty. Medications: Bactrim Oral 400/80mg 1 tab at bedtime. Cholecalciferol Oral (Tablet 1000 unit) 1 tablet, daily. Clobetasol PRN. Colace Oral (Capsule 100 mg) 2 capsules, daily. Crestor Oral (Tablet 10 mg), daily. Digoxin Oral (Tablet 125 mcg) 1 tablet, daily. Gabapentin Oral 600mg , 3x a day. Loratadine Oral 10 mg, daily. Magnesium Hydroxide Oral 400mg x1 tab daily. metoprolol 100mg 1/2 tab x2 daily. Mom 30ml prn. Multi Vitamin/Minerals Oral. Ondansetron HCl Oral (Tablet 8 mg), as needed. OxyCODONE HCl Oral 15mg PRN shingles. PredniSONE Oral 5 mg, daily. Sildenefil 20mg 5 tab in am. Simethicone Oral 80mg 1-2 in am and pm. Tacrolimus Oral (Capsule 1 mg) 4 caps 7am and 4 caps 7pm. Testosterone CYP 200mg/ml 1&1/2 ml Q three weeks. Tums Oral daily. Tylenol Oral 325 mg, PRN. Victoza 1.7mg daily. Warfarin Sodium Oral 2 mg, x2 at bedtime. Xanax Oral 0.25 mg, as needed. Warfarin Sodium Oral. Allergies: Statins. (feet swelling). SOCIAL HISTORY Former smoker. Alcohol use. No drug use. ADDITIONAL NOTES The nursing notes have been reviewed. PHYSICAL EXAM Vital Signs: 09/30/2016 18:35 BP: 158/52. HR: 60. RR: 20. O2 saturation: 95%. Temp: 98.1 F. Pain level now: 08/03. Appearance: Alert. No acute distress. No backboard or C-collar. Head: Vertex: mild tenderness and 1.0 cm laceration. SEE LACERATION PROCEDURE NOTE #1. No ecchymosis. Eyes: Pupils equal, round and reactive to light. No abnormal funduscopic findings. Right periorbital area: No tenderness or swelling. Left periorbital area: No tenderness or swelling. No ocular injury. ENT: No dental injury. No malocclusion. Neck: Painless ROM. Neck non-tender. No vertebral tenderness. No puncture wound. No tenderness, laceration or ecchymosis. CVS: irreg irreg. Respiratory: Breath sounds normal. Chest nontender. No chest wall injury. Abdomen: Soft. Back: No tenderness. ROM normal. Extremities: Normal inspection. Pelvis stable. Neuro: [place] Coma Scale: 11; best verbal response- oriented x 3 (5); best motor response- obeys commands (6). Oriented X 3. Mood/affect normal. Speech normal. No motor deficit. LABS, X-RAYS, AND EKG CT Head: (IMPRESSION: 1. No CT evidence of acute intracranial process. 2. Questionable tiny nasal septal fracture, likely chronic. 3. Findings discussed with Allie Haji at [address] scans at this facility use dose modulation, iterative reconstruction, and/or weight-based dosing when appropriate to reduce radiation dose to as low as reasonably achievable. Electronically Final signed by:Jackie Scruggs MD 09/30/2016 7:37:20 PM). Laboratory Tests: PT with INR: (GABRIEL: 09/30/2016 18:55) ( MsgRcvd 09/30/2016 19:15) Final results Test Result Flag Units (Reference) INR 1.8 H (0.8-1.2) Low Intensity Therapy: INR 1.5-2.0 PT range 18.5-23.1Mod.Intensity Therapy: INR 2.0-3.0 PT range 23.1-31.5High Intensity Therapy: INR 2.5-3.5 PT range 27.4-35.5High Intensity Therapy 2: INR 3.0-4.0 PT range 31.5-39.3 APTT 33 SECONDS (24-34) . PROGRESS AND PROCEDURES PROCEDURES (irrigation of laceration of scalp, 2 grace placed). Course of Care: patient here in the ER with a mild headache, on warfarin, with a head injury, we will obtain CT. Negative head CT no signs of any injury. Patient stable. No cervical spine tenderness. No active bleeding. Neg neuro exam. Patient is stable. Symptoms better. Patient/family counseled. Disposition: Discharged. Condition: good. CLINICAL IMPRESSION Minor closed head injury. Single deep laceration to the scalp. INSTRUCTIONS Protect wound and keep wound area clean. Apply bacitracin twice daily. Grace should be removed in fourteen days. (PT with INR: (GABRIEL: 09/30/2016 18:55) ( MsgRcvd 09/30/2016 19:15) Final results Test Result Flag (Reference) INR 1.8 H (0.8-1.2) Low Intensity Therapy: INR 1.5-2.0 PT range 18.5-23.1 Mod.Intensity Therapy: INR 2.0-3.0 PT range 23.1-31.5 High Intensity Therapy: INR 2.5-3.5 PT range 27.4-35.5 High Intensity Therapy 2: INR 3.0-4.0 PT range 31.5-39.3 APTT 33 SECONDS (24-34)). Follow-up: Follow up with your doctor in two weeks. (Electronically signed by Snow Haji P.A.-C 09/30/2016 20:05)
--- NOTE | 2016-09-30 19:37 | DIAGNOSTIC IMAGING REPORT ---
PROCEDURE: CT HEAD WITHOUT CONTRAST INDICATION: TRAUMA/INJURY TECHNIQUE: Axial CT images were acquired through the head. Coronal and sagittal reformations were created. COMPARISON: None. FINDINGS: No intracranial hemorrhage or extraaxial fluid collections. Ventricles are normal in size, shape and position. There is no mass, mass effect or midline shift. The dunbar-white matter differentiation is normal. There is no edema. The calvarium is intact. The paranasal sinuses and mastoid air cells are normally aerated. Soft tissues are normal. Minimal leftward displacement of the tip of the nasal septum, chronicity uncertain given lack of overlying soft tissue swelling. IMPRESSION: 1. No CT evidence of acute intracranial process. 2. Questionable tiny nasal septal fracture, likely chronic. 3. Findings discussed with Allie Haji at [address] scans at this facility use dose modulation, iterative reconstruction, and/or weight-based dosing when appropriate to reduce radiation dose to as low as reasonably achievable.
--- NOTE | 2016-09-30 20:05 | ED MAR SUMMARY ---
..... Medication Administration Record [facility] [address] [place], [place] [id number] Patient: DANIELLE RESENDIZ Visit ID: [id number] 66y, M Weight: 108.8 kg Height/Length: 67 in BMI: 37.6 ALLERGIES: Statins
--- NOTE | 2016-09-30 20:05 | ED MED RECONCILIATION SUMMARY ---
Patient: DANIELLE RESENDIZ Medication Reconciliation Report [facility] VisitID: [id number] [place] [address] 66y, M Registration Date/Time: 09/30/2016 Weight: 108.8 kg Height/Length: 67 in. BMI: 37.6 ALLERGIES: Statins The patient's Home Medications are listed below: THE FOLLOWING MEDICATIONS NEED TO BE RECONCILED: Bactrim Oral 400/80mg 1 tab at bedtime Cholecalciferol Oral (1000 unit) 1 tablet, daily Clobetasol PRN Colace Oral (100 mg) 2 capsules, daily Crestor Oral (10 mg), daily Digoxin Oral (125 mcg) 1 tablet, daily Gabapentin Oral 600mg , 3x a day Loratadine Oral 10 mg, daily Magnesium Hydroxide Oral 400mg x1 tab daily metoprolol 100mg 1/2 tab x2 daily Mom 30ml prn Multi Vitamin/Minerals Oral Ondansetron HCl Oral (8 mg) OxyCODONE HCl Oral 15mg PRN shingles PredniSONE Oral 5 mg, daily Sildenefil 20mg 5 tab in am Simethicone Oral 80mg 1-2 in am and pm Tacrolimus Oral (1 mg) 4 caps 7am and 4 caps 7pm Testosterone CYP 200mg/ml 1&1/2 ml Q three weeks Tums Oral daily Tylenol Oral 325 mg, PRN Victoza 1.7mg daily Warfarin Sodium Oral 2 mg, x2 at bedtime Warfarin Sodium Oral Xanax Oral 0.25 mg The source(s) of the original Home Medication information: patient's imported external medical record The following Medications were given to the patient in the Emergency Department: None. The following Medications were prescribed to the patient: None.
--- NOTE | 2016-09-30 20:05 | ED MED RECONCILIATION SUMMARY ---
Patient: DANIELLE RESENDIZ Medication Reconciliation Report [facility] VisitID: [id number] [place] [address] 66y, M Registration Date/Time: 09/30/2016 Weight: 108.8 kg Height/Length: 67 in. BMI: 37.6 ALLERGIES: Statins The patient's Home Medications are listed below: THE FOLLOWING MEDICATIONS NEED TO BE RECONCILED: Bactrim Oral 400/80mg 1 tab at bedtime Cholecalciferol Oral (1000 unit) 1 tablet, daily Clobetasol PRN Colace Oral (100 mg) 2 capsules, daily Crestor Oral (10 mg), daily Digoxin Oral (125 mcg) 1 tablet, daily Gabapentin Oral 600mg , 3x a day Loratadine Oral 10 mg, daily Magnesium Hydroxide Oral 400mg x1 tab daily metoprolol 100mg 1/2 tab x2 daily Mom 30ml prn Multi Vitamin/Minerals Oral Ondansetron HCl Oral (8 mg) OxyCODONE HCl Oral 15mg PRN shingles PredniSONE Oral 5 mg, daily Sildenefil 20mg 5 tab in am Simethicone Oral 80mg 1-2 in am and pm Tacrolimus Oral (1 mg) 4 caps 7am and 4 caps 7pm Testosterone CYP 200mg/ml 1&1/2 ml Q three weeks Tums Oral daily Tylenol Oral 325 mg, PRN Victoza 1.7mg daily Warfarin Sodium Oral 2 mg, x2 at bedtime Warfarin Sodium Oral Xanax Oral 0.25 mg The source(s) of the original Home Medication information: patient's imported external medical record The following Medications were given to the patient in the Emergency Department: None. The following Medications were prescribed to the patient: None.
--- NOTE | 2016-09-30 20:05 | ED DISCHARGE INSTRUCTIONS ---
Patient: DANIELLE RESENDIZ General Instructions [facility] VisitID: [id number] [place] [address] 66y, M Registration Date/Time: 09/30/2016 Minor closed head injury. Single deep laceration to the scalp. INSTRUCTIONS Protect wound and keep wound area clean. Apply bacitracin twice daily. Harmony should be removed in fourteen days. (PT with INR: (GABRIEL: 09/30/2016 18:55) ( MsgRcvd 09/30/2016 19:15) Final results Test Result Flag (Reference) INR 1.8 H (0.8-1.2) Low Intensity Therapy: INR 1.5-2.0 PT range 18.5-23.1 Mod.Intensity Therapy: INR 2.0-3.0 PT range 23.1-31.5 High Intensity Therapy: INR 2.5-3.5 PT range 27.4-35.5 High Intensity Therapy 2: INR 3.0-4.0 PT range 31.5-39.3 APTT 33 SECONDS (24-34)). Follow-up: Follow up with your doctor in two weeks. ADDITIONAL INFORMATION Head Injury, No Wake-Up (Adult) You have had a head injury. It does not appear serious at this time. Symptoms of a more serious problem (concussion, bruising, or bleeding in the brain) may appear later. Therefore, watch for the WARNING SIGNS listed below. Home Care: Your healthcare provider will tell you whether its okay to drive. If so, you can drive yourself home. For the next day or so, be careful when driving or using heavy machinery until you are sure you have no delayed symptoms. During the next 24 hours someone must stay with you to check for the signs below. It is not necessary to stay awake or be awakened during the night. If you have swelling of the face or scalp, apply an ice pack (ice cubes in a plastic bag, wrapped in a towel) for 20 minutes. Do this every 1-2 hours until the swelling starts to go down. Do not use aspirin or ibuprofen (Motrin, Advil) after a head injury.You may use acetaminophen (Tylenol)to control pain, unless another pain medicine was prescribed. [NOTE: If you have chronic liver or kidney disease or ever had a stomach ulcer or GI bleeding, talk with your doctor before using these medicines.] For the next 24 hours: Do not take alcohol, sedatives or medicines that make you sleepy. Avoid strenuous activities. No lifting or straining. If you have had any symptoms of a concussion today (nausea, vomiting, dizziness, confusion, headache, memory loss or if you were knocked out), do not return to sports or any activity that could result in another head injury until all symptoms are gone and you have been cleared by your doctor. A second head injury before fully recovering from the first one can lead to serious brain injury. Follow Up with your doctor if symptoms are not improving after 24 hours, or as directed. [NOTE: A radiologist will review any X-rays or CT scans that were taken. We will notify you of any new findings that may affect your care.] Get Prompt Medical Attention if any of the followingWARNING SIGNS occur: Repeated vomiting Severe or worsening headache or dizziness Unusual drowsiness, or unable to awaken as usual Confusion or change in behavior or speech, memory loss, blurred vision Convulsion (seizure) Increasing scalp or face swelling Redness, warmth or pus from the swollen area Fluid drainage or bleeding from the nose or ears Laceration (All Closures) Alaceration is a cut through the skin. This will usually require stitches (sutures) or antwan if it is deep. Minor cuts may be treated with a surgical tape closure orskin glue. Home care The following guidelines will help you care for your laceration at home: Extremity, face, or trunk wounds Keep the wound clean and dry. If a bandage was applied and it becomes wet or dirty, replace it. Otherwise, leave it in place for the first 24 hours. If stitches or antwan were used, clean the wound daily. After removing the bandage, wash the area with soap and water. Use a wet cotton swab to loosen and remove any blood or crust that forms. The doctor may prescribe an antibiotic cream or ointment to prevent infection. Do not stop taking this medication until you have finished the prescribed course or the doctor tells you to stop. The doctor may also prescribe medications for pain. Follow the doctors instructions for taking these medications. You may remove the bandage to shower as usual after the first 24 hours, but do not soak the area in water (no swimming) until the stitches or antwan are removed. If surgical tape was used, keep the area clean and dry. If it becomes wet, blot it dry with a towel. If skin glue was used, do not scratch, rub, or pick at the adhesive film. Do not place tape directly over the film. Do not apply liquid, ointment, or creams to the wound while the film is in place. Do not clean the wound with peroxide and do not apply ointments. Avoid activities that cause heavy sweating until the film has fallen off. Protect the wound from prolonged exposure to sunlight or tanning lamps. You may shower as usual but do not soak the wound in water (no baths or swimming). The film will fall off by itself in 510 days. Scalp wounds During the first two days, you may carefully rinse your hair in the shower to remove blood, glass or dirt particles. After two days, you may shower and shampoo your hair normally. Do not soak your scalp in the tub or go swimming until the stitches or antwan have been removed. Talk with your doctor before applying any antibiotic ointment to the wound. Mouth wounds Eat soft foods to reduce pain. If the cut is inside of your mouth, clean by rinsing after each meal and at bedtime with a mixture of equal parts water and hydrogen peroxide (do not swallow!). Or, you can use a cotton swab to directly apply hydrogen peroxide onto the cut. Mouth wounds can be painful when eating. You may use an [id number] local numbing solution for pain relief. If this is not available, you may use any numbing solution for teething babies. You may apply this directly to the sores with a cotton-tip swab or with your finger. Follow-up care Follow up with your health care provider. Most skin wounds heal within ten days. Mouth and facial wounds heal within five days. However, even with proper treatment, a wound infection may sometimes occur. Therefore, you should check the wound daily for signs of infection listed below. Stitches should be removed from the face within five days; stitches and antwan should be removed from other parts of the body within 714 days. If dissolving stitches were used in the mouth, these will fall out or dissolve without the need for removal. If tape closures were used, remove them yourself if they have not fallen off after 7 days. Ifskin glue was used, the film will fall off by itself in 510 days. When to seek medical care Get prompt medical attention if any of these occur: Bleeding not controlled by direct pressure Signs of infection, including increasing pain in the wound, increasing wound redness or swelling, or pus coming from the wound Fever of 100.4F (38C) or higher, or as directed by your health care provider Stitches or antwan come apart or fall out or surgical tape falls off before 7 days Wound edges re-open You have been given the following additional information: HEAD INJURY, No Wake-Up (Adult) Laceration, All (Electronically signed by Snow Haji P.A.-C 09/30/2016 20:05)
--- NOTE | 2016-09-30 20:05 | ED MAR SUMMARY ---
..... Medication Administration Record [facility] [address] [place], [place] [id number] Patient: DANIELLE RESENDIZ Visit ID: [id number] 66y, M Weight: 108.8 kg Height/Length: 67 in BMI: 37.6 ALLERGIES: Statins
== END 2016-09-30 19:44 | disposition home or self-care (01) ==
LOC: ED SRH 18:23
DX: S01.01XA Laceration without foreign body of scalp, initial encounter (principal); S09.90XA Unspecified injury of head, initial encounter; W20.8XXA Other cause of strike by thrown, projected or falling object, initial encounter; Y93.89 Activity, other specified; Y92.009 Unspecified place in unspecified non-institutional (private) residence as the place of occurrence of the external cause; Y99.9 Unspecified external cause status; Z79.01 Long term (current) use of anticoagulants; I10 Essential (primary) hypertension; J44.9 Chronic obstructive pulmonary disease, unspecified; Z87.891 Personal history of nicotine dependence
CPT/HCPCS: 81663; 90074; 94001; 94060

== ENCOUNTER 2016-10-22 17:18 | Emergency (ER) | payer OTHER ==
--- NOTE | 2016-10-22 18:43 | ED NURSING NOTES ---
Clinical Report - Nurses [facility] [address] [place] [address] 10/22/2016 17:21 Patient: DANIELLE RESENDIZ TRIAGE Triage time 17:29. Acuity: LEVEL 2. Chief Complaint: (ABNORMAL LAB VALUES). 17:32 10/22/16. 17:32 10/22/16. Alert. No acute distress. ( Pt had labs drawn at [facility], level came back at 6.2 and was sent here. Pt was being seen today by endocrine MD today.). SEPSIS SCREEN: Sepsis Screen. Negative (no infection suspected/documented). GIACOMO COMA SCORE: [place] Coma Scale: 15- eyes open spontaneously (4); best verbal response- oriented x 4 (5); best motor response- obeys commands (6). --17:40 William Saavedra R.N. 17:35 10/22/16. BP: 168/74. HR: 60. RR: 18. O2 saturation: 100%. Temp: 97.7 F (oral). Pain level now: 0/10. --17:40 William Saavedra R.N. Weight: 109.7 kg stated. Height/Length: 67 inches Per Patient. BMI: 37.9. --17:32 William Saavedra R.N. Medications Clobetasol PRN, , to scalp . --17:34 William Saavedra R.N. Bactrim Oral 400/80mg 1 tab at bedtime. Cholecalciferol Oral (Tablet 1000 unit) 1 tablet, daily. Colace Oral (Capsule 100 mg) 2 capsules, daily. Crestor Oral (Tablet 10 mg), daily. Digoxin Oral (Tablet 125 mcg) 1 tablet, daily. Gabapentin Oral 600mg , 3x a day. Magnesium Hydroxide Oral 400mg x1 tab two times a day. Tylenol Oral 325 mg, PRN, 2 tabs prn. Warfarin Sodium Oral 2 mg, , two tabs at bedtime. Xanax Oral (Tablet 0.25 mg), as needed, 0.5-1 tab, two to three times daily as needed. --17:34 William Saavedra R.N. Loratadine Oral 10 mg, daily. metoprolol 100mg 1/2 tab x2 daily. Mom 30ml prn. Multi Vitamin/Minerals Oral. Ondansetron HCl Oral (Tablet 8 mg), as needed. OxyCODONE HCl Oral 15mg PRN shingles. PredniSONE Oral 5 mg, daily. Sildenefil 20mg 5 tab in am. Simethicone Oral 80mg 1-2 in am and pm. Testosterone CYP 200mg/ml 1&1/2 ml Q three weeks. Tums Oral daily. Victoza 1.7mg daily. --17:34 William Saavedra R.N. Alkalol Nasal, , 1-4 teaspoons OTC as needed. --17:54 William Saavedra R.N. Azithromycin Oral 250 mg, daily. --17:56 William Saavedra R.N. Calcium Carbonate Oral 1000mg, one tab during breakfast and dinner. --17:56 William Saavedra R.N. Clindamycin HCl Oral, , 1% solution one time daily at bedtime. --17:57 William Saavedra R.N. Desonide External (Lotion 0.05 %), , to skin two times a day. --17:58 William Saavedra R.N. Fluticasone 50mcg , , two sprays each each nostril daily. --18:01 William Saavedra R.N. Lasix Oral 40 mg, 2x a day. --18:02 William Saavedra R.N. Hydrocortisone cream, , 2.5%, two times a day. --18:03 William Saavedra R.N. Ipratropium [place] (Nasal) Nasal 0.06% spray, 1-2 sprays each nostril TID. --18:03 William Saavedra R.N. Ketoconazole Oral, , 2% shampoo Three times a week. --18:04 William Saavedra R.N. Lopressor Oral 50 mg, 2x a day. --18:05 [place], William, R.N. NovoLOG FlexPen Subcutaneous. --18:06 William Saavedra R.N. Mupirocin External, , 2% daily to affected area. --18:07 William Saavedra R.N. Zofran ODT Oral. --18:07 William Saavedra R.N. MiraLax Oral 17mg, one cap daily as needed. --18:08 William Saavedra R.N. PreviDent 5000 Booster Dental (Paste 1.1 %), as needed, 1-2 times daily. --18:09 William Saavedra R.N. Tacrolimus Oral 1mg, 4 caps, , at 0700 and 4 caps at 1900. --18:10 William Saavdera R.N. The following entry was struck by William Saavedra R.N., 18:13 (10/22/16) Reason - other. <<[facility] ENTRY-- Tacrolimus Oral (Capsule 1 mg) 4 caps 7am and 4 caps 7pm. --17:34 William Saavedra R.N. --END STRIKE>> The following entry was struck by William Saavedra R.N., 18:12 (10/22/16) Reason - other. <<[facility]-- Mvi, daily. --18:06 William Saavedra R.N. --END STRIKE>> The following entry was struck and corrected by William Saavedra R.N., 18:12 (10/22/16) Reason for correction - other(correction). <<[facility]-- Warfarin Sodium Oral 2 mg, x2 at bedtime. --17:34 William Saavedra R.N. --END STRIKE>> The following entry was struck by William Saavedra R.N., 18:11 (10/22/16) Reason - other. <<[facility] ENTRY-- Digoxin Oral 0.125 mg, daily. --17:59 William Saavedra R.N. --END STRIKE>> The following entry was struck and corrected by William Saavedra R.N., 18:05 (10/22/16) Reason for correction - other(correction). <<[facility] ENTRY-- Magnesium Hydroxide Oral 400mg x1 tab daily. --17:34 William Saavedra R.N. --END STRIKE>> The following entry was struck by William Saavedra R.N., 18:01 (10/22/16) Reason - other. <<[facility]-- Fluticasone Propionate Nasal. --18:00 William Saavedra R.N. --END STRIKE>> The following entry was struck and corrected by William Saavedra R.N., 17:58 (10/22/16) Reason for correction - other(correction). <<[facility]-- Clobetasol PRN. --17:34 William Saavedra R.N. --END STRIKE>> The following entry was struck and corrected by William Saavedra R.N., 17:55 (10/22/16) Reason for correction - other(correction). <<[facility] ENTRY-- Xanax Oral 0.25 mg, as needed. --17:34 William Saavedra R.N. --END STRIKE>> The following entry was struck and corrected by William Saavedra R.N., 17:54 (10/22/16) Reason for correction - other(correction). <<[facility] ENTRY-- Tylenol Oral 325 mg, PRN. --17:34 William Saavedra R.N. --END STRIKE>>. Medication/allergy information source: the patient and patient's family. --17:40 William Saavedra R.N. Allergies Statins. (feet swelling) --17:34 William Saavedra R.N. History Arrived by private vehicle. Historian: patient. Accompanied by family. Primary physician (TU). 17:32 10/22/16. This started today. Treatment GOLD PLATER: None. PAST MEDICAL HX: Immunizations: up-to-date. SOCIAL HX: Former smoker, end date 2002. No alcohol use or drug use. FALL RISK ASSESSMENT: Fall risk assessment completed. No fall risk identified. NUTRITIONAL RISK ASSESSMENT: The nutritional risk assessment revealed no deficiencies. FUNCTIONAL ASSESSMENT: Functional assessment: no impairments noted. LEARNING NEEDS ASSESSMENT: The learning needs assessment revealed no barriers. SKIN INTEGRITY ASSESSMENT: Skin integrity risk assessment completed. No skin integrity risk identified. --17:40 William Saavedra R.N. PROBLEMS: Laceration. Head Injury. Subungual Hematoma. Benign Prostatic Hypertrophy. Erectile Dysfunction. Diabetes Mellitus. Peripheral Neuropathy. Atrial Fibrillation. Arrhythmia. Sinusitis. Congestive Heart Failure. Hypertension. Hyperlipidemia. Anxiety Reaction. Cellulitis. Sleep Apnea. Pulmonary Hypertension. COPD - Chronic Obstructive Pulmonary Disease. Hypercholesterolemia. Herpes Zoster. --17:35 William Saavedra R.N. ADDITIONAL SURGERIES: Cholecystectomy. Lung Transplant. Tor Fundoplasty. --17:35 William Saavedra R.N. Assessment 17:32 10/22/16. --17:40 William Saavedra R.N. Interventions 17:10/22/16. 17:10/22/16. ID and allergy band on patient. To treatment room. --17:40 William Saavedra R.N. PHYSICAL ASSESSMENT 17:33 10/22/16. Ambulatory to room. GENERAL / NEURO / PSYCH: Alert. Oriented X 4. Appears in no acute distress. RESPIRATORY: Respirations not labored. CVS: Capillary refill less than 2 seconds. SKIN: Skin is warm and dry. --17:34 William Saavedra R.N. NURSING PROGRESS NOTES 17:34 10/22/16. The plan of care for this patient has been created. church history professor, pulse oximeter and NIBP monitor placed on patient. Patient gowned. Head of bed elevated. Two patient identifiers checked. Call light placed in reach. Side rails up x 2. Bed placed in lowest position. Brakes of bed on. Patient ready for evaluation- chart flagged and notification provided. --17:34 William Saavedra R.N. 17:10/22/16. EKG time: (1742 PM). EKG was ordered, performed by a tech and shown to the ED physician. --17:40 William Saavedra R.N. 17:10/22/16. Cardiac rhythm: atrial fibrillation; (64). --17:40 William Saavedra R.N. 17:10/22/16. church history professor, pulse oximeter and NIBP monitor placed on patient. --17:40 William Saavedra R.N. 17:46 10/22/2016 Site #1 started via IV in the right antecubital space with an 20g angiocath; one attempt. Blood drawn: rainbow set. Labeled in the presence of the patient and sent to the lab. Saline lock flushed with 10 mL saline. --17:46 William Saavedra R.N. 17:46 10/22/2016 Started bag #1 1000 mL IV Fluids IV NS (Saline); at 1000 mL/hr over 1 hour(s) via site #1. Allergies verified and confirmed 5 rights. IV patency established. IV site checked: no pain, redness, or swelling. IV flushed thoroughly pre- and post-medication administration. Completed per protocol. --17:46 William Saavedra R.N. 18:13 10/22/16. BP: 138/64. HR: 54. RR: 14. O2 saturation: 96% on room air. --18:14 William Saavedra R.N. 18:14 10/22/16. --18:14 William Saavedra R.N. 18:14 10/22/16. Cardiac rhythm: atrial fibrillation; (55). --18:14 William Saavedra R.N. 18:26 10/22/16. Patient and family informed about reason for wait and about plan of care. --18:26 William Saavedra R.N. 18:26 10/22/16. Patient waiting for lab results. --18:26 William Saavedra R.N. 18:42 10/22/2016 IV Fluids IV NS Discontinued: bag #1 infused upon discharge. Total amount infused: 750 mL. IV patency established. IV site checked: no pain, redness, or swelling. IV flushed thoroughly. --18:52 William Saavedra R.N. DISPOSITION / DISCHARGE 18:43 10/22/2016 Site #1 removed upon discharge. Catheter intact. Bandaid applied. --18:43 William Saavedra R.N. 18:45 10/22/16. Cardiac rhythm: atrial fibrillation. Condition at departure: improved. The goals identified in the patient's plan of care were met. No learning barriers present. Discharge instructions provided and reviewed with the patient and spouse. Reviewed warnings. Reviewed medication(s). Treatments reviewed. Patient and spouse verbalized understanding. Written instructions provided in Ivorian. The patient was discharged by the physician. He was discharged home and accompanied by family. He left the Emergency Department ambulatory and via private vehicle. Family member driving. FALL RISK ASSESSMENT: Fall risk assessment completed. No fall risk identified. --18:45 William Saavedra R.N. 18:43 10/22/16. BP: 153/75. HR: 54. RR: 15. O2 saturation: 95% on room air. Temp: 97.9 F (oral). --18:45 William Saavedra R.N. 18:52 10/22/16. Departure time: 18:52. --18:52 William Saavedra R.N. 18:52 10/22/16. ( Pt will follow up with PCP). --18:52 William Saavedra R.N. Locked/Released at 10/22/2016 19:05 by William Saavedra R.N.
--- NOTE | 2016-10-22 18:43 | ED ORDER SUMMARY ---
..... Patient: DANIELLE RESENDIZ OrderSheet [facility] VisitID: [id number] [place] [address] 66y, M Registration Date/Time: 10/22/2016 ORDER SHEET Weight: 109.7 kg (stated) Allergies: Statins GENERAL ORDERS: Hardware Installer (Continuous) (Respiratory Distress) (17:45 10/22/2016 JBoardley R.N. per protocol) (17:46 JBoardley R.N.) (Cancelled: Other17:47 JBoardley R.N.) UA-Culture if indicated Urgent (17:46 10/22/2016 JBoardley R.N. per protocol) (Ack 17:51 PWeiler ER Tech1) (17:53 JBoardley R.N.) CBC w Diff Urgent (17:46 10/22/2016 JBoardley R.N. per protocol) (Ack 17:51 PWeiler ER Tech1) (17:53 JBoardley R.N.) CMP Urgent (17:46 10/22/2016 JBoardley R.N. per protocol) (Ack 17:51 PWeiler ER Tech1) (17:53 JBoardley R.N.) Oxygen (2 L/min) (NC) (17:46 10/22/2016 JBoardley R.N. per protocol) (17:46 JBoardley R.N.) Hardware Installer (Continuous) (17:47 10/22/2016 JBoardley R.N. per protocol) (17:47 JBoardley R.N.) Amylase Urgent (17:53 10/22/2016 Maritza JARA) (Ack 17:55 PWeiler ER Tech1) (18:22 JBoardley R.N.) Lipase Urgent (17:53 10/22/2016 Maritza JARA) (Ack 17:55 PWeiler ER Tech1) (18:22 JBoardley R.N.) PT with INR Urgent (17:53 10/22/2016 Maritza JARA) (Ack 17:55 PWeiler ER Tech1) (18:22 JBoardley R.N.) PTT Urgent (17:53 10/22/2016 Maritza JARA) (Ack 17:55 PWeiler ER Tech1) (18:22 Timbo R.N.) CPK Urgent (17:53 10/22/2016 Maritza JARA) (Ack 17:55 PWeiler ER Tech1) (18:22 Timbo R.N.) Troponin-I Urgent (17:53 10/22/2016 Maritza JARA) (Ack 17:55 PWeiler ER Tech1) (18:22 Timbo R.N.) EKG - ER Stat (17:53 10/22/2016 Maritza JARA) (17:54 PWeiler ER Tech1) MEDICATION ORDERS: IV FLUIDS: IV NS : initial bolus none -, then 1000 mL/hr for X1 (NOW); Routine (17:46 10/22/2016 Timbo Ga per protocol) (17:46 Timbo Beckford.N.) ORDER SHEET NOTES: [Electronically signed by William Saavedra R.N. (19:05 10/22/2016)] [Electronically signed by Eddie Caraballo MD (19:21 10/22/2016)] [Electronically locked/signed by William Saavedra R.N. (19:05 10/22/2016)]
--- NOTE | 2016-10-22 18:43 | ED NURSING NOTES ---
Clinical Report - [facility] [address] [place] [address] 10/22/2016 17:21 Patient: DANIELLE RESENDIZ TRIAGE Triage time 17:29. Acuity: LEVEL 2. Chief Complaint: (ABNORMAL LAB VALUES). 17:32 10/22/16. 17:32 10/22/16. Alert. No acute distress. ( Pt had labs drawn at [facility], level came back at 6.2 and was sent here. Pt was being seen today by endocrine MD today.). SEPSIS SCREEN: Sepsis Screen. Negative (no infection suspected/documented). GIACOMO COMA SCORE: [place] Coma Scale: 15- eyes open spontaneously (4); best verbal response- oriented x 4 (5); best motor response- obeys commands (6). --17:40 William Saavedra R.N. 17:35 10/22/16. BP: 168/74. HR: 60. RR: 18. O2 saturation: 100%. Temp: 97.7 F (oral). Pain level now: 0/10. --17:40 William Saavedra R.N. Weight: 109.7 kg stated. Height/Length: 67 inches Per Patient. BMI: 37.9. --17:32 William Saavedra R.N. Medications Clobetasol PRN, , to scalp . --17:34 William Saavedra R.N. Bactrim Oral 400/80mg 1 tab at bedtime. Cholecalciferol Oral (Tablet 1000 unit) 1 tablet, daily. Colace Oral (Capsule 100 mg) 2 capsules, daily. Crestor Oral (Tablet 10 mg), daily. Digoxin Oral (Tablet 125 mcg) 1 tablet, daily. Gabapentin Oral 600mg , 3x a day. Magnesium Hydroxide Oral 400mg x1 tab two times a day. Tylenol Oral 325 mg, PRN, 2 tabs prn. Warfarin Sodium Oral 2 mg, , two tabs at bedtime. Xanax Oral (Tablet 0.25 mg), as needed, 0.5-1 tab, two to three times daily as needed. --17:34 William Saavedra R.N. Loratadine Oral 10 mg, daily. metoprolol 100mg 1/2 tab x2 daily. Mom 30ml prn. Multi Vitamin/Minerals Oral. Ondansetron HCl Oral (Tablet 8 mg), as needed. OxyCODONE HCl Oral 15mg PRN shingles. PredniSONE Oral 5 mg, daily. Sildenefil 20mg 5 tab in am. Simethicone Oral 80mg 1-2 in am and pm. Testosterone CYP 200mg/ml 1&1/2 ml Q three weeks. Tums Oral daily. Victoza 1.7mg daily. --17:34 William Saavedra R.N. Alkalol Nasal, , 1-4 teaspoons OTC as needed. --17:54 William Saavedra R.N. Azithromycin Oral 250 mg, daily. --17:56 William Saavedra R.N. Calcium Carbonate Oral 1000mg, one tab during breakfast and dinner. --17:56 William Saavedra R.N. Clindamycin HCl Oral, , 1% solution one time daily at bedtime. --17:57 William Saavedra R.N. Desonide External (Lotion 0.05 %), , to skin two times a day. --17:58 William Saavedra R.N. Fluticasone 50mcg , , two sprays each each nostril daily. --18:01 William Saavedra R.N. Lasix Oral 40 mg, 2x a day. --18:02 William Saavedra R.N. Hydrocortisone cream, , 2.5%, two times a day. --18:03 William Saavedra R.N. Ipratropium [place] (Nasal) Nasal 0.06% spray, 1-2 sprays each nostril TID. --18:03 William Saavedra R.N. Ketoconazole Oral, , 2% shampoo Three times a week. --18:04 William Saavedra R.N. Lopressor Oral 50 mg, 2x a day. --18:05 Boardley, William, R.N. NovoLOG FlexPen Subcutaneous. --18:06 William Saavedra R.N. Mupirocin External, , 2% daily to affected area. --18:07 William Saavedra R.N. Zofran ODT Oral. --18:07 William Saavedra R.N. MiraLax Oral 17mg, one cap daily as needed. --18:08 William Saavedra R.N. PreviDent 5000 Booster Dental (Paste 1.1 %), as needed, 1-2 times daily. --18:09 William Saavedra R.N. Tacrolimus Oral 1mg, 4 caps, , at 0700 and 4 caps at 1900. --18:10 William Saavedra R.N. The following entry was struck by William Saavedra R.N., 18:13 (10/22/16) Reason - other. <<[facility] ENTRY-- Tacrolimus Oral (Capsule 1 mg) 4 caps 7am and 4 caps 7pm. --17:34 William Saavedra R.N. --END STRIKE>> The following entry was struck by William Saavedra R.N., 18:12 (10/22/16) Reason - other. <<[facility]-- Mvi, daily. --18:06 William Saavedra R.N. --END STRIKE>> The following entry was struck and corrected by William Saavedra R.N., 18:12 (10/22/16) Reason for correction - other(correction). <<[facility]-- Warfarin Sodium Oral 2 mg, x2 at bedtime. --17:34 William Saavedra R.N. --END STRIKE>> The following entry was struck by William Saavedra R.N., 18:11 (10/22/16) Reason - other. <<[facility] ENTRY-- Digoxin Oral 0.125 mg, daily. --17:59 William Saavedra R.N. --END STRIKE>> The following entry was struck and corrected by William Saavedra R.N., 18:05 (10/22/16) Reason for correction - other(correction). <<[facility] ENTRY-- Magnesium Hydroxide Oral 400mg x1 tab daily. --17:34 William Saavedra R.N. --END STRIKE>> The following entry was struck by William Saavedra R.N., 18:01 (10/22/16) Reason - other. <<[facility]-- Fluticasone Propionate Nasal. --18:00 William Saavedra R.N. --END STRIKE>> The following entry was struck and corrected by William Saavedra R.N., 17:58 (10/22/16) Reason for correction - other(correction). <<[facility]-- Clobetasol PRN. --17:34 William Saavedra R.N. --END STRIKE>> The following entry was struck and corrected by William Saavedra R.N., 17:55 (10/22/16) Reason for correction - other(correction). <<[facility] ENTRY-- Xanax Oral 0.25 mg, as needed. --17:34 William Saavedra R.N. --END STRIKE>> The following entry was struck and corrected by William Saavedra R.N., 17:54 (10/22/16) Reason for correction - other(correction). <<[facility] ENTRY-- Tylenol Oral 325 mg, PRN. --17:34 William Saavedra R.N. --END STRIKE>>. Medication/allergy information source: the patient and patient's family. --17:40 William Saavedra R.N. Allergies Statins. (feet swelling) --17:34 iWlliam Saavedra R.N. History Arrived by private vehicle. Historian: patient. Accompanied by family. Primary physician (TU). 17:32 10/22/16. This started today. Treatment PUMP TECHNICIAN: None. PAST MEDICAL HX: Immunizations: up-to-date. SOCIAL HX: Former smoker, end date 2002. No alcohol use or drug use. FALL RISK ASSESSMENT: Fall risk assessment completed. No fall risk identified. NUTRITIONAL RISK ASSESSMENT: The nutritional risk assessment revealed no deficiencies. FUNCTIONAL ASSESSMENT: Functional assessment: no impairments noted. LEARNING NEEDS ASSESSMENT: The learning needs assessment revealed no barriers. SKIN INTEGRITY ASSESSMENT: Skin integrity risk assessment completed. No skin integrity risk identified. --17:40 William Saavedra R.N. PROBLEMS: Laceration. Head Injury. Subungual Hematoma. Benign Prostatic Hypertrophy. Erectile Dysfunction. Diabetes Mellitus. Peripheral Neuropathy. Atrial Fibrillation. Arrhythmia. Sinusitis. Congestive Heart Failure. Hypertension. Hyperlipidemia. Anxiety Reaction. Cellulitis. Sleep Apnea. Pulmonary Hypertension. COPD - Chronic Obstructive Pulmonary Disease. Hypercholesterolemia. Herpes Zoster. --17:35 William Saavedra R.N. ADDITIONAL SURGERIES: Cholecystectomy. Lung Transplant. Tor Fundoplasty. --17:35 William Saavedra R.N. Assessment 17:32 10/22/16. --17:40 William Saavedra R.N. Interventions 17:10/22/16. 17:10/22/16. ID and allergy band on patient. To treatment room. --17:40 William Saavedra R.N. PHYSICAL ASSESSMENT 17:33 10/22/16. Ambulatory to room. GENERAL / NEURO / PSYCH: Alert. Oriented X 4. Appears in no acute distress. RESPIRATORY: Respirations not labored. CVS: Capillary refill less than 2 seconds. SKIN: Skin is warm and dry. --17:34 William Saavedra R.N. NURSING PROGRESS NOTES 17:34 10/22/16. The plan of care for this patient has been created. monitoring manager, pulse oximeter and NIBP monitor placed on patient. Patient gowned. Head of bed elevated. Two patient identifiers checked. Call light placed in reach. Side rails up x 2. Bed placed in lowest position. Brakes of bed on. Patient ready for evaluation- chart flagged and notification provided. --17:34 William Saavedra R.N. 17:10/22/16. EKG time: (1742 PM). EKG was ordered, performed by a tech and shown to the ED physician. --17:40 William Saavedra R.N. 17:10/22/16. Cardiac rhythm: atrial fibrillation; (64). --17:40 William Saavedra R.N. 17:10/22/16. monitoring manager, pulse oximeter and NIBP monitor placed on patient. --17:40 William Saavedra R.N. 17:46 10/22/2016 Site #1 started via IV in the right antecubital space with an 20g angiocath; one attempt. Blood drawn: rainbow set. Labeled in the presence of the patient and sent to the lab. Saline lock flushed with 10 mL saline. --17:46 William Saavedra R.N. 17:46 10/22/2016 Started bag #1 1000 mL IV Fluids IV NS (Saline); at 1000 mL/hr over 1 hour(s) via site #1. Allergies verified and confirmed 5 rights. IV patency established. IV site checked: no pain, redness, or swelling. IV flushed thoroughly pre- and post-medication administration. Completed per protocol. --17:46 William Saavedra R.N. 18:13 10/22/16. BP: 138/64. HR: 54. RR: 14. O2 saturation: 96% on room air. --18:14 William Saavedra R.N. 18:14 10/22/16. --18:14 William Saavedra R.N. 18:14 10/22/16. Cardiac rhythm: atrial fibrillation; (55). --18:14 William Saavedra R.N. 18:26 10/22/16. Patient and family informed about reason for wait and about plan of care. --18:26 William Saavedra R.N. 18:26 10/22/16. Patient waiting for lab results. --18:26 William Saavedra R.N. 18:42 10/22/2016 IV Fluids IV NS Discontinued: bag #1 infused upon discharge. Total amount infused: 750 mL. IV patency established. IV site checked: no pain, redness, or swelling. IV flushed thoroughly. --18:52 William Saavedra R.N. DISPOSITION / DISCHARGE 18:43 10/22/2016 Site #1 removed upon discharge. Catheter intact. Bandaid applied. --18:43 William Saavedra R.N. 18:45 10/22/16. Cardiac rhythm: atrial fibrillation. Condition at departure: improved. The goals identified in the patient's plan of care were met. No learning barriers present. Discharge instructions provided and reviewed with the patient and spouse. Reviewed warnings. Reviewed medication(s). Treatments reviewed. Patient and spouse verbalized understanding. Written instructions provided in [place]. The patient was discharged by the physician. He was discharged home and accompanied by family. He left the Emergency Department ambulatory and via private vehicle. Family member driving. FALL RISK ASSESSMENT: Fall risk assessment completed. No fall risk identified. --18:45 William Saavedra R.N. 18:43 10/22/16. BP: 153/75. HR: 54. RR: 15. O2 saturation: 95% on room air. Temp: 97.9 F (oral). --18:45 William Saavedra R.N. 18:52 10/22/16. Departure time: 18:52. --18:52 William Saavedra R.N. 18:52 10/22/16. ( Pt will follow up with PCP). --18:52 William Saavdera R.N. Locked/Released at 10/22/2016 19:05 by William Saavedra R.N.
--- NOTE | 2016-10-22 18:43 | ED ORDER SUMMARY ---
..... Patient: DANIELLE RESENDIZ OrderSheet [facility] VisitID: [id number] [place] [address] 66y, M Registration Date/Time: 10/22/2016 ORDER SHEET Weight: 109.7 kg (stated) Allergies: Statins GENERAL ORDERS: Cafe Team Member (Continuous) (Respiratory Distress) (17:45 10/22/2016 JBoardley R.N. per protocol) (17:46 JBoardley R.N.) (Cancelled: Other17:47 JBoardley R.N.) UA-Culture if indicated Urgent (17:46 10/22/2016 JBoardley R.N. per protocol) (Ack 17:51 PWeiler ER Tech1) (17:53 JBoardley R.N.) CBC w Diff Urgent (17:46 10/22/2016 JBoardley R.N. per protocol) (Ack 17:51 PWeiler ER Tech1) (17:53 JBoardley R.N.) CMP Urgent (17:46 10/22/2016 JBoardley R.N. per protocol) (Ack 17:51 PWeiler ER Tech1) (17:53 JBoardley R.N.) Oxygen (2 L/min) (NC) (17:46 10/22/2016 JBoardley R.N. per protocol) (17:46 JBoardley R.N.) Cafe Team Member (Continuous) (17:47 10/22/2016 JBoardley R.N. per protocol) (17:47 JBoardley R.N.) Amylase Urgent (17:53 10/22/2016 Maritza JARA) (Ack 17:55 PWeiler ER Tech1) (18:22 JBoardley R.N.) Lipase Urgent (17:53 10/22/2016 Maritza JARA) (Ack 17:55 PWeiler ER Tech1) (18:22 JBoardley R.N.) PT with INR Urgent (17:53 10/22/2016 Maritza JARA) (Ack 17:55 PWeiler ER Tech1) (18:22 JBoardley R.N.) PTT Urgent (17:53 10/22/2016 Maritza JARA) (Ack 17:55 PWeiler ER Tech1) (18:22 Timbo R.N.) CPK Urgent (17:53 10/22/2016 Maritza JARA) (Ack 17:55 PWeiler ER Tech1) (18:22 Timbo R.N.) Troponin-I Urgent (17:53 10/22/2016 Maritza JARA) (Ack 17:55 PWeiler ER Tech1) (18:22 Timbo R.N.) EKG - ER Stat (17:53 10/22/2016 Maritza JARA) (17:54 PWeiler ER Tech1) MEDICATION ORDERS: IV FLUIDS: IV NS : initial bolus none -, then 1000 mL/hr for X1 (NOW); Routine (17:46 10/22/2016 Timbo Ga per protocol) (17:46 Timbo Beckford.N.) ORDER SHEET NOTES: [Electronically signed by William Saavedra R.N. (19:05 10/22/2016)] [Electronically signed by Eddie Caraballo MD (19:21 10/22/2016)] [Electronically locked/signed by William Saavedra R.N. (19:05 10/22/2016)]
--- NOTE | 2016-10-22 18:43 | ED CLINICAL REPORT ---
Clinical Report - Physicians/Mid Levels Located Within [facility] [address] [place] [address] 10/22/2016 17:21 [facility]: [id number] Time Seen: 17:27. Arrived- By private vehicle. Historian- patient. HISTORY OF PRESENT ILLNESS Chief Complaint: ABNORMAL POTASSIUM. This started today. The patient has had fatigue. 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 He was having blood drawn to check hemoglobin A1c and his requested that they check potassium level as his dose of Lasix was recently increased. After returning home they received a phone call from the [facility] and he reportedly had a potassium level of 6.1. He was instructed to come in and have this evaluated.). REVIEW OF SYSTEMS No chills, fever, sweats, calf pain or chest pain. No cough, difficulty breathing, pedal edema, abdominal pain or constipation. No diarrhea, nausea, vomiting, urinary problems or diabetic symptoms. The patient has had palpitations (chronically). It has been similar to previous symptoms. All systems otherwise negative, except as recorded above. PAST HISTORY PCP - [facility] Problems: Laceration. Head Injury. Subungual Hematoma. Benign Prostatic Hypertrophy. Erectile Dysfunction. Diabetes Mellitus. Peripheral Neuropathy. Atrial Fibrillation. Arrhythmia. Sinusitis. Congestive Heart Failure. Hypertension. Hyperlipidemia. Anxiety Reaction. Cellulitis. Sleep Apnea. Pulmonary Hypertension. COPD - Chronic Obstructive Pulmonary Disease. Hypercholesterolemia. Herpes Zoster. Additional Surgeries: Cholecystectomy. Lung Transplant. Tor Fundoplasty. SOCIAL HISTORY Smoker- current status unknown. No alcohol use or drug use. FAMILY HISTORY Stroke in first-degree relative (father) and grandparent. ADDITIONAL NOTES The nursing notes have been reviewed. PHYSICAL EXAM Vital Signs: 10/22/2016 17:35 BP: 168/74. HR: 60. RR: 18. O2 saturation: 100%. Temp: 97.7 F. Pain level now: 0/10. Have been reviewed. Appearance: Alert. No acute distress. Eyes: Pupils equal, round and reactive to light. ENT: Pharynx normal. Neck: Normal inspection. Neck supple. CVS: Abnormal rhythm, which is irregularly irregular. Respiratory: No respiratory distress. Breath sounds normal. Abdomen: No visible injury. Soft and nontender. Bowel sounds normal. No organomegaly. No mass. Obese. Back: Normal inspection. No CVA tenderness. Skin: Skin warm and dry. Normal skin color. Normal skin turgor. Extremities: Extremities exhibit normal ROM. No calf tenderness. No lower extremity edema. LABS, X-RAYS, AND EKG EKG: Rate: 57. Atrial fibrillation. Changes present when compared to prior EKG. (13 Aug 2012 at ). The study has been independently viewed by me. Laboratory Tests: UA-Culture if indicated: (GABRIEL: 10/22/2016 17:45) ( MsgRcvd 10/22/2016 18:07) Final results Test Result Flag Units (Reference) URINE COLOR LIGHT YELLOW URINE APPEARANCE CLEAR URINE GLUCOSE NEGATIVE (NEGATIVE) URINE BILIRUBIN NEGATIVE (NEGATIVE) URINE KETONE NEGATIVE (NEGATIVE) URINE SPECIFIC GRAVITY <= 1.005 L (1.010-1.030) URINE PH 6.0 (5.0-8.0) URINE PROTEIN NEGATIVE (NEGATIVE) URINE UROBILINOGEN 0.2 EU/dL (0.2-1.0) URINE NITRITE NEGATIVE (NEGATIVE) URINE BLOOD NEGATIVE (NEGATIVE) URINE LEUK ESTERASE NEGATIVE (NEGATIVE) URINE RBC NONE SEEN rbc/hpf (0-1) URINE WBC 0-1 wbc/hpf (0-1) URINE EPITHELIAL CELLS NONE SEEN EPI/hpf (0-5) URINE BACTERIA TRACE (<1+) (NONE SEEN) URINE COMMENT CULT NOT INDICATED RARE HYALINE CAST.URINE CULTURES ARE SET-UP BASED ON THE FOLLOWING CRITERIA:POSITIVE NITRITEPOSITIVE LEUKOCYTE ESTERASEGREATER THAN 10 WHITE BLOOD CELLSMODERATE (2+) OR GREATER BACTERIA CBC w Diff: (GABRIEL: 10/22/2016 17:45) ( MsgRcvd 10/22/2016 18:00) Final results Test Result Flag Units (Reference) WHITE BLOOD COUNT 7.5 K/uL (4.5-11.5) RED BLOOD COUNT 4.99 M/uL (4.50-5.90) HEMOGLOBIN 12.2 L gm/dL (13.5-17.5) HEMATOCRIT 38.9 L % (41.0-53.0) MEAN CELL VOLUME 78 L fL (80-100) MEAN CORPUSCULAR HGB 24 L pg (26-34) MEAN CORPUSCULAR HGB CONC 31 g/dL (31-37) RED CELL DISTRIBUTION WIDTH 17.7 H % (11.6-14.8) PLATELET COUNT 157 K/uL (150-400) NEUTROPHIL % 69.3 % (50-75) LYMPH % 18.2 L % (25-40) MONO % 10.4 % (3-14) EOSINOPHIL % 1.7 % (0-4) BASOPHIL % 0.4 % (0-2) PT with INR: (GABRIEL: 10/22/2016 17:45) ( [facility] 10/22/2016 18:08) Final results Test Result Flag Units (Reference) INR 3.4 H (0.8-1.2) Low Intensity Therapy: INR 1.5-2.0 PT range 18.5-23.1Mod.Intensity Therapy: INR 2.0-3.0 PT range 23.1-31.5High Intensity Therapy: INR 2.5-3.5 PT range 27.4-35.5High Intensity Therapy 2: INR 3.0-4.0 PT range 31.5-39.3 APTT 53 H SECONDS (24-34) CMP: (GABRIEL: 10/22/2016 17:45) ( [facility] 10/22/2016 18:37) Final results Test Result Flag Units (Reference) GLUCOSE 161 H mg/dL (70-110) BUN 48 H mg/dL (7-18) CREATININE 3.1 H mg/dL (0.6-1.3) Estimated GFR 21.53 mL/min Estimated GFR- 26.10 mL/min Note: Persistent reduction over 3 months in eGFR<60 mL/min/1.73 m2 defines CKD. Patients with eGFR values>=60 mL/min/1.73 m2 may also have CKD if evidence ofpersistent proteinuria. Additional information may be foundat www.kidney.org. SODIUM 139 mmol/L (136-145) POTASSIUM 5.1 mmol/L (3.5-5.1) CHLORIDE 101 mmol/L (98-107) CARBON DIOXIDE 30 mmol/L (21-32) CALCIUM 8.5 mg/dL (8.5-10.1) TOTAL PROTEIN 7.0 g/dL (6.4-8.2) ALBUMIN 3.5 g/dL (3.3-5.0) BILIRUBIN, TOTAL 0.4 mg/dL (0.0-1.0) ALKALINE PHOSPHATASE 74 U/L (46-116) AST (SGOT) 32 U/L (15-37) ALT (SGPT) 44 U/L (12-78) LIPASE 321 U/L (73-393) AMYLASE 70 U/L (25-115) CPK 278 H U/L (24-260) CK-MB 7.5 H ng/mL (0.5-3.2) %CKMB 2.7 % (0.0-4.0) TROPONIN I 0.07 ng/mL (0.00-1.5) TROPONIN REFERENCE RANGE:<0.1 NEGATIVE0.1-1.5 INDETERMINANT>1.5 POSITIVE . PROGRESS AND PROCEDURES Course of Care: Patient is stable. Consult obtained. Dr. Curry of the transplant team. Case discussed. Phone consult only. Patient/family counseled. Old medical records reviewed. (from ). Disposition: Discharged. Condition: stable. CLINICAL IMPRESSION Chronic renal insufficiency. abnormal potassium level at [facility] today. - this was likely due to a hemolyzed specimen. INSTRUCTIONS Warnings: GENERAL WARNINGS: Return or contact your physician immediately if your condition worsens or changes unexpectedly, if not improving as expected, or if other problems arise. Your Current Medications: CONTINUE TAKING THE FOLLOWING MEDICATIONS: Alkalol Nasal : 1-4 teaspoons OTC as needed. Azithromycin Oral : 250 mg daily. Bactrim Oral : 400/80mg 1 tab at bedtime. Calcium Carbonate Oral : 1000mg one tab during breakfast and dinner. Cholecalciferol Oral : Tablet 1000 unit, 1 tablet daily. Clindamycin HCl Oral : 1% solution one time daily at bedtime. Clobetasol PRN* : to scalp. Colace Oral : Capsule 100 mg, 2 capsules daily. Crestor Oral : Tablet 10 mg, daily. Desonide External : Lotion 0.05 %, to skin two times a day. Digoxin Oral : Tablet 125 mcg, 1 tablet daily. Fluticasone* : 50mcg, two sprays each each nostril daily. Gabapentin Oral : 600mg 3x a day. Hydrocortisone cream* : 2.5%, two times a day. Ipratropium [place] (Nasal) Nasal : 0.06% spray, 1-2 sprays each nostril TID. Ketoconazole Oral : 2% shampoo Three times a week. Lasix Oral : 40 mg 2x a day. Lopressor Oral : 50 mg 2x a day. Loratadine Oral : 10 mg daily. Magnesium Hydroxide Oral : 400mg x1 tab two times a day. metoprolol 100mg 1/2 tab x2 daily*. MiraLax Oral : 17mg one cap daily, prn. Mom 30ml prn*. Multi Vitamin/Minerals Oral. Mupirocin External : 2% daily to affected area. NovoLOG FlexPen Subcutaneous. Ondansetron HCl Oral : Tablet 8 mg, prn. OxyCODONE HCl Oral : 15mg PRN shingles. PredniSONE Oral : 5 mg daily. PreviDent 5000 Booster Dental : Paste 1.1 %, prn, 1-2 times daily. Sildenefil 20mg 5 tab in am*. Tacrolimus Oral : 1mg, 4 caps, at 0700 and 4 caps at 1900. Testosterone CYP 200mg/ml 1&1/2 ml Q three weeks*. Tums Oral : daily. Tylenol Oral : 325 mg PRN, 2 tabs prn. Victoza 1.7mg daily*. Warfarin Sodium Oral : 2 mg, two tabs at bedtime. Xanax Oral : Tablet 0.25 mg, prn, 0.5-1 tab, two to three times daily as needed. Zofran ODT Oral. Follow-up: Follow up with your doctor as scheduled. Understanding of the discharge instructions verbalized by patient and family. (Electronically signed by Eddie Caraballo MD 10/22/2016 19:21)
--- NOTE | 2016-10-22 19:21 | ED DISCHARGE INSTRUCTIONS ---
Patient: DANIELLE RESENDIZ General Instructions [facility] VisitID: [id number] [place] [address] 66y, M Registration Date/Time: 10/22/2016 Chronic renal insufficiency. abnormal potassium level at [facility] today. - this was likely due to a hemolyzed specimen. INSTRUCTIONS Warnings: GENERAL WARNINGS: Return or contact your physician immediately if your condition worsens or changes unexpectedly, if not improving as expected, or if other problems arise. Your Current Medications: CONTINUE TAKING THE FOLLOWING MEDICATIONS: Alkalol Nasal : 1-4 teaspoons OTC as needed. Azithromycin Oral : 250 mg daily. Bactrim Oral : 400/80mg 1 tab at bedtime. Calcium Carbonate Oral : 1000mg one tab during breakfast and dinner. Cholecalciferol Oral : Tablet 1000 unit, 1 tablet daily. Clindamycin HCl Oral : 1% solution one time daily at bedtime. Clobetasol PRN* : to scalp. Colace Oral : Capsule 100 mg, 2 capsules daily. Crestor Oral : Tablet 10 mg, daily. Desonide External : Lotion 0.05 %, to skin two times a day. Digoxin Oral : Tablet 125 mcg, 1 tablet daily. Fluticasone* : 50mcg, two sprays each each nostril daily. Gabapentin Oral : 600mg 3x a day. Hydrocortisone cream* : 2.5%, two times a day. Ipratropium [place] (Nasal) Nasal : 0.06% spray, 1-2 sprays each nostril TID. Ketoconazole Oral : 2% shampoo Three times a week. Lasix Oral : 40 mg 2x a day. Lopressor Oral : 50 mg 2x a day. Loratadine Oral : 10 mg daily. Magnesium Hydroxide Oral : 400mg x1 tab two times a day. metoprolol 100mg 1/2 tab x2 daily*. MiraLax Oral : 17mg one cap daily, prn. Mom 30ml prn*. Multi Vitamin/Minerals Oral. Mupirocin External : 2% daily to affected area. NovoLOG FlexPen Subcutaneous. Ondansetron HCl Oral : Tablet 8 mg, prn. OxyCODONE HCl Oral : 15mg PRN shingles. PredniSONE Oral : 5 mg daily. PreviDent 5000 Booster Dental : Paste 1.1 %, prn, 1-2 times daily. Sildenefil 20mg 5 tab in am*. Tacrolimus Oral : 1mg, 4 caps, at 0700 and 4 caps at 1900. Testosterone CYP 200mg/ml 1&1/2 ml Q three weeks*. Tums Oral : daily. Tylenol Oral : 325 mg PRN, 2 tabs prn. Victoza 1.7mg daily*. Warfarin Sodium Oral : 2 mg, two tabs at bedtime. Xanax Oral : Tablet 0.25 mg, prn, 0.5-1 tab, two to three times daily as needed. Zofran ODT Oral. Follow-up: Follow up with your doctor as scheduled. Understanding of the discharge instructions verbalized by patient and family. ADDITIONAL INFORMATION Renal Insufficiency The role of the kidneys is to remove waste products and excess water from the body. When the kidneys do not function normally, waste products build up in the blood.The early stage of this process is called renal insufficiency . If renal insufficiency worsens it can lead to chronic renal failure. This allows excess water, waste and toxic substances to build up in the body. This can become a threat to life, requiring dialysis or a kidney transplant to stay alive. Diabetes is the leading causes of renal insufficiency. Other causes include high blood pressure, hardening of the arteries, lupus, inflammation of the blood vessels (vasculitis), prior viral and bacterial infections, and others. Certain ozgf-nru-kyeplsw pain medicines can cause renal failure when taken often over a long period of time. These include aspirin, ibuprofen (Advil, Motrin) and related anti-inflammatory medicines. Home Care: If you have diabetes, talk to your doctor about the quality of your blood sugar control.Ask about any changes needed to your diet or medicines. If you have high blood pressure: Take your blood pressure medicine. Take up a regular exercise program that you enjoy.Check with your doctor to be sure your planned exercise program is right for you. Reduce your salt (sodium) intake.Your doctor can tell you how much salt per day is safe for you. If you are overweight, talk to your doctor about a weight loss plan. If you smoke, you must quit.Smoking worsens kidney disease.Talk to your doctor about ways to help you quit.For more information, visit the following links: www.smokefree.gov/pubs/clearing_the_air.pdf www.smokefree.gov www.[employer].com Talk to your doctor about any dietary restrictions advised. In general, it is advisable to limit protein, salt, potassium and phosphorus.Avoid excess fluids. Do not add salt at the table and avoid salty foods.A calcium supplement may be prescribed to protect your bones from osteoporosis. Avoid the following over the counter medicines, or consult your doctor before using: Aspirin and anti-inflammatory drugs such as ibuprofen (Advil, Motrin), naprosyn (Aleve); [Short term use of acetaminophen (Tylenol) for fever or pain is okay.] Laxatives and antacids containing magnesium or aluminum (Mylanta, Maalox) Avoid Fleet or phosphosoda enemas which contain phosphorus Certain stomach acid-blocking medicine such as cimetidine (Tagamet), ranitidine (Zantac) Decongestants containing pseudoephedrine (such as some forms of Sudafed or Actifed) Herbal supplements Follow Up with your doctor or as advised by our staff. Contact one of the following for more information. [phone] www.aakp.org National Kidney Foundation www.kidney.org Return Promptly or contact your doctor if any of the following occurs: Nausea or vomiting Severe weakness, dizziness, fainting, drowsiness or confusion Chest pain or shortness of breath Unexpected weight gain or swelling in the legs, ankles or around the eyes Heart beating fast, slow or irregularly Decrease or loss in urine output You have been given the following additional information: Renal Insufficiency (Electronically signed by Eddie Caraballo MD 10/22/2016 19:21)
--- NOTE | 2016-10-22 19:21 | ED MED RECONCILIATION SUMMARY ---
Patient: DANIELLE RESENDIZ Medication Reconciliation Report [facility] VisitID: [id number] [place] [address] 66y, M Registration Date/Time: 10/22/2016 Weight: 109.7 kg Height/Length: 67 in. BMI: 37.9 ALLERGIES: Statins The patient's Home Medications are listed below: CONTINUE TAKING THE FOLLOWING MEDICATIONS: Alkalol Nasal, 1-4 teaspoons OTC as needed Azithromycin Oral 250 mg, daily Bactrim Oral 400/80mg 1 tab at bedtime Calcium Carbonate Oral 1000mg, one tab during breakfast and dinner Cholecalciferol Oral (1000 unit) 1 tablet, daily Clindamycin HCl Oral, 1% solution one time daily at bedtime Clobetasol PRN, to scalp Colace Oral (100 mg) 2 capsules, daily Crestor Oral (10 mg), daily Desonide External (0.05 %), to skin two times a day Digoxin Oral (125 mcg) 1 tablet, daily Fluticasone 50mcg , two sprays each each nostril daily Gabapentin Oral 600mg , 3x a day Hydrocortisone cream, 2.5%, two times a day Ipratropium [place] (Nasal) Nasal 0.06% spray, 1-2 sprays each nostril TID Ketoconazole Oral, 2% shampoo Three times a week Lasix Oral 40 mg, 2x a day Lopressor Oral 50 mg, 2x a day Loratadine Oral 10 mg, daily Magnesium Hydroxide Oral 400mg x1 tab two times a day metoprolol 100mg 1/2 tab x2 daily MiraLax Oral 17mg, one cap daily Mom 30ml prn Multi Vitamin/Minerals Oral Mupirocin External, 2% daily to affected area NovoLOG FlexPen Subcutaneous Ondansetron HCl Oral (8 mg) OxyCODONE HCl Oral 15mg PRN shingles PredniSONE Oral 5 mg, daily PreviDent 5000 Booster Dental (1.1 %), 1-2 times daily Sildenefil 20mg 5 tab in am Tacrolimus Oral 1mg, 4 caps, at 0700 and 4 caps at 1900 Testosterone CYP 200mg/ml 1&1/2 ml Q three weeks Tums Oral daily Tylenol Oral 325 mg, PRN, 2 tabs prn Victoza 1.7mg daily Warfarin Sodium Oral 2 mg, two tabs at bedtime Xanax Oral (0.25 mg), 0.5-1 tab, two to three times daily as needed Zofran ODT Oral THE FOLLOWING MEDICATIONS NEED TO BE RECONCILED: Simethicone Oral 80mg 1-2 in am and pm The source(s) of the original Home Medication information: patient's family member patient The following Medications were given to the patient in the Emergency Department: IV NS IV Fluids bolus 0, then 1000 mL/hr, administered: 10/22/2016 5:46:00 PM The following Medications were prescribed to the patient: None.
--- NOTE | 2016-10-22 19:21 | ED MAR SUMMARY ---
..... Medication Administration Record [address] [place] [address] Patient: DANIELLE RESENDIZ Visit ID: [id number] 66y, M Weight: 109.7 kg Height/Length: 67 in BMI: 37.9 ALLERGIES: Statins Start 17:46 10/22/2016 William Saavedra R.N., Stop 18:42 10/22/2016 William Saavedra R.N. Medication Administered: IV NS (SALINE), Dose: IV Fluids over 1 hour(s), Rate: 1000 mL/hr, Dispensed: 1000 mL bag, Site: #1 right AC. Medication Ordered: IV NS : initial bolus none -, then 1000 mL/hr for X1 (NOW); Routine.
--- NOTE | 2016-10-22 19:21 | ED DISCHARGE INSTRUCTIONS ---
Patient: DANIELLE RESENDIZ General Instructions [facility] VisitID: [id number] [place] [address] 66y, M Registration Date/Time: 10/22/2016 Chronic renal insufficiency. abnormal potassium level at [facility] today. - this was likely due to a hemolyzed specimen. INSTRUCTIONS Warnings: GENERAL WARNINGS: Return or contact your physician immediately if your condition worsens or changes unexpectedly, if not improving as expected, or if other problems arise. Your Current Medications: CONTINUE TAKING THE FOLLOWING MEDICATIONS: Alkalol Nasal : 1-4 teaspoons OTC as needed. Azithromycin Oral : 250 mg daily. Bactrim Oral : 400/80mg 1 tab at bedtime. Calcium Carbonate Oral : 1000mg one tab during breakfast and dinner. Cholecalciferol Oral : Tablet 1000 unit, 1 tablet daily. Clindamycin HCl Oral : 1% solution one time daily at bedtime. Clobetasol PRN* : to scalp. Colace Oral : Capsule 100 mg, 2 capsules daily. Crestor Oral : Tablet 10 mg, daily. Desonide External : Lotion 0.05 %, to skin two times a day. Digoxin Oral : Tablet 125 mcg, 1 tablet daily. Fluticasone* : 50mcg, two sprays each each nostril daily. Gabapentin Oral : 600mg 3x a day. Hydrocortisone cream* : 2.5%, two times a day. Ipratropium [place] (Nasal) Nasal : 0.06% spray, 1-2 sprays each nostril TID. Ketoconazole Oral : 2% shampoo Three times a week. Lasix Oral : 40 mg 2x a day. Lopressor Oral : 50 mg 2x a day. Loratadine Oral : 10 mg daily. Magnesium Hydroxide Oral : 400mg x1 tab two times a day. metoprolol 100mg 1/2 tab x2 daily*. MiraLax Oral : 17mg one cap daily, prn. Mom 30ml prn*. Multi Vitamin/Minerals Oral. Mupirocin External : 2% daily to affected area. NovoLOG FlexPen Subcutaneous. Ondansetron HCl Oral : Tablet 8 mg, prn. OxyCODONE HCl Oral : 15mg PRN shingles. PredniSONE Oral : 5 mg daily. PreviDent 5000 Booster Dental : Paste 1.1 %, prn, 1-2 times daily. Sildenefil 20mg 5 tab in am*. Tacrolimus Oral : 1mg, 4 caps, at 0700 and 4 caps at 1900. Testosterone CYP 200mg/ml 1&1/2 ml Q three weeks*. Tums Oral : daily. Tylenol Oral : 325 mg PRN, 2 tabs prn. Victoza 1.7mg daily*. Warfarin Sodium Oral : 2 mg, two tabs at bedtime. Xanax Oral : Tablet 0.25 mg, prn, 0.5-1 tab, two to three times daily as needed. Zofran ODT Oral. Follow-up: Follow up with your doctor as scheduled. Understanding of the discharge instructions verbalized by patient and family. ADDITIONAL INFORMATION Renal Insufficiency The role of the kidneys is to remove waste products and excess water from the body. When the kidneys do not function normally, waste products build up in the blood.The early stage of this process is called renal insufficiency . If renal insufficiency worsens it can lead to chronic renal failure. This allows excess water, waste and toxic substances to build up in the body. This can become a threat to life, requiring dialysis or a kidney transplant to stay alive. Diabetes is the leading causes of renal insufficiency. Other causes include high blood pressure, hardening of the arteries, lupus, inflammation of the blood vessels (vasculitis), prior viral and bacterial infections, and others. Certain kuky-llm-pzhznlw pain medicines can cause renal failure when taken often over a long period of time. These include aspirin, ibuprofen (Advil, Motrin) and related anti-inflammatory medicines. Home Care: If you have diabetes, talk to your doctor about the quality of your blood sugar control.Ask about any changes needed to your diet or medicines. If you have high blood pressure: Take your blood pressure medicine. Take up a regular exercise program that you enjoy.Check with your doctor to be sure your planned exercise program is right for you. Reduce your salt (sodium) intake.Your doctor can tell you how much salt per day is safe for you. If you are overweight, talk to your doctor about a weight loss plan. If you smoke, you must quit.Smoking worsens kidney disease.Talk to your doctor about ways to help you quit.For more information, visit the following links: www.smokefree.gov/pubs/clearing_the_air.pdf www.smokefree.gov www.[employer].com Talk to your doctor about any dietary restrictions advised. In general, it is advisable to limit protein, salt, potassium and phosphorus.Avoid excess fluids. Do not add salt at the table and avoid salty foods.A calcium supplement may be prescribed to protect your bones from osteoporosis. Avoid the following over the counter medicines, or consult your doctor before using: Aspirin and anti-inflammatory drugs such as ibuprofen (Advil, Motrin), naprosyn (Aleve); [Short term use of acetaminophen (Tylenol) for fever or pain is okay.] Laxatives and antacids containing magnesium or aluminum (Mylanta, Maalox) Avoid Fleet or phosphosoda enemas which contain phosphorus Certain stomach acid-blocking medicine such as cimetidine (Tagamet), ranitidine (Zantac) Decongestants containing pseudoephedrine (such as some forms of Sudafed or Actifed) Herbal supplements Follow Up with your doctor or as advised by our staff. Contact one of the following for more information. [place] [employer] [phone] www.aakp.org National Kidney Foundation www.kidney.org Return Promptly or contact your doctor if any of the following occurs: Nausea or vomiting Severe weakness, dizziness, fainting, drowsiness or confusion Chest pain or shortness of breath Unexpected weight gain or swelling in the legs, ankles or around the eyes Heart beating fast, slow or irregularly Decrease or loss in urine output You have been given the following additional information: Renal Insufficiency (Electronically signed by Eddie Caraballo MD 10/22/2016 19:21)
--- NOTE | 2016-10-22 19:21 | ED MAR SUMMARY ---
..... Medication Administration Record [facility] [address] [place] [address] Patient: DANIELLE RESENDIZ Visit ID: [id number] 66y, M Weight: 109.7 kg Height/Length: 67 in BMI: 37.9 ALLERGIES: Statins Start 17:46 10/22/2016 William Saavedra R.N., Stop 18:42 10/22/2016 William Saavedra R.N. Medication Administered: IV NS (SALINE), Dose: IV Fluids over 1 hour(s), Rate: 1000 mL/hr, Dispensed: 1000 mL bag, Site: #1 right AC. Medication Ordered: IV NS : initial bolus none -, then 1000 mL/hr for X1 (NOW); Routine.
== END 2016-10-22 18:52 | disposition home or self-care (01) ==
LOC: ED SRH 17:18
DX: N18.9 Chronic kidney disease, unspecified (principal); E87.6 Hypokalemia; I10 Essential (primary) hypertension; E11.9 Type 2 diabetes mellitus without complications; J44.9 Chronic obstructive pulmonary disease, unspecified; Z79.899 Other long term (current) drug therapy
CPT/HCPCS: 90004; 90100; 90616; 90617; 92235; 92530; 92610; 94001; 94060; 95059